=== PATIENT | male | born 1960 | race Caucasian/White ===

== ENCOUNTER → 2016-08-14 | Outpatient (CLI) | payer OTHER ==
[~2016-08-14] MED LIST: ASPI81TA28 PO; LEVO175T25 PO
[2016-08-14 10:59] LABS: BASO % 1.7 %; BASO ABS # 0.14 K/uL (0-0.2); COMPLETE YES; EOS % 1.7 %; HEMATOCRIT 43.5 % (42-52); IG% 0.1 %; LYMPH ABS # 1.86 K/uL (1.2-3.4); MEAN CELL VOLUME 92.8 fL (80-100); MEAN CORPUSCULAR HEMOGLOBIN 32.2 pg (25-34); MEAN CORPUSCULAR HGB CONC 34.7 g/dl (32-36); MEAN PLATELET VOLUME 10.1 fL (7.4-10.4); NEUT % 59.5 %; PLATELET COUNT 438 K/uL (130-400); RED BLOOD COUNT 4.69 M/uL (4.7-6.1)
[2016-08-14 11:27] LABS: ALKALINE PHOSPHATASE 67 U/L (45-117); ALT/SGPT 28 U/L (12-78); AST/SGOT 21 U/L (15-37); BLOOD UREA NITROGEN 14 mg/dl (7-18); BUN/CREATININE RATIO 11.5 (10-20); CALCIUM 8.7 mg/dl (8.5-10.1); CARBON DIOXIDE 27 mmol/L (21-32); CHLORIDE 102 mmol/L (98-107); CHOLESTEROL 190 mg/dl (0-200); CHOLESTEROL/HDL RATIO 2.3; GLUCOSE 97 mg/dl (70-99); HDL CHOLESTEROL 81 mg/dl; LDL CHOLESTEROL CALCULATED 95 mg/dl; POTASSIUM 3.9 mmol/L (3.5-5.1); SODIUM 139 mmol/L (136-145); TRIGLYCERIDES 69 mg/dl (0-150); VERY LOW DENSITY LIPOPROT CALC 14 mg/dl
== END | disposition home or self-care (01) ==
LOC: C.LABBC 09:07
PROVIDERS: ATTEND Family Medicine
DX: I10 Essential (primary) hypertension (principal); E03.9 Hypothyroidism, unspecified; C81.90 Hodgkin lymphoma, unspecified, unspecified site; Z11.59 Encounter for screening for other viral diseases; Z13.220 Encounter for screening for lipoid disorders

== ENCOUNTER → 2017-09-07 | Outpatient (CLI) | payer OTHER ==
--- NOTE | 2017-09-07 10:01 | DIAGNOSTIC IMAGING REPORT ---
CHEST 2 VIEWS ROUTINE CLINICAL HISTORY: Hodgkin's lymphoma. COMPARISON STUDY: Chest radiograph December 27, 2012 and January 29, 2015. FINDINGS: Lung volumes are normal. No pneumothorax or pleural effusion is noted. There is no consolidation. Several calcified mediastinal lymph nodes are noted. A 1.4 cm right paratracheal density is likely artifactual. Upper abdominal surgical clips are noted. IMPRESSION: 1. 1.4 cm right paratracheal density. This is likely artifactual. However, a follow-up chest CT is recommended to exclude a pulmonary nodule. 2. No acute cardiopulmonary findings. Electronically signed by: Radhames Berger M.D. 09/07/2017 9:59 AM Dictated Date/Time: 09/07/2017 9:56 AM
[2017-09-07 13:52] LABS: BASO ABS # 0.14 K/uL (0-0.2); EOS % 0.6 %; EOS ABS # 0.04 K/uL (0-0.5); HEMATOCRIT 45.3 % (42-52); HEMOGLOBIN 15.7 g/dL (14.0-18.0); IG# 0.01 K/uL (0.00-0.02); LYMPH % 35.6 %; LYMPH ABS # 2.45 K/uL (1.2-3.4); MEAN CELL VOLUME 94.6 fL (80-100); MEAN CORPUSCULAR HEMOGLOBIN 32.8 pg (25-34); MEAN CORPUSCULAR HGB CONC 34.7 g/dl (32-36); MEAN PLATELET VOLUME 10.2 fL (7.4-10.4); MONO % 13.6 %; MONO ABS # 0.94 K/uL (0.11-0.59); NEUT % 48.1 %; NEUT ABS # 3.31 K/uL (1.4-6.5); PLATELET COUNT 399 K/uL (130-400); RED CELL DISTRIBUTION WIDTH CV 14.9 % (11.5-14.5); RED CELL DISTRIBUTION WIDTH SD 52.2 fL (36.4-46.3); WHITE BLOOD COUNT 6.89 K/uL (4.8-10.8)
[2017-09-07 14:07] LABS: ALT/SGPT 35 U/L (12-78); BLOOD UREA NITROGEN 16 mg/dl (7-18); CALCIUM 8.8 mg/dl (8.5-10.1); CARBON DIOXIDE 28 mmol/L (21-32); CHOLESTEROL 191 mg/dl (0-200); GLUCOSE 96 mg/dl (70-99); SODIUM 134 mmol/L (136-145)
[2017-09-07 14:17] LABS: ALKALINE PHOSPHATASE 72 U/L (45-117); AST/SGOT 23 U/L (15-37); LDL CHOLESTEROL CALCULATED 91 mg/dl; TOTAL PROTEIN 8.1 gm/dl (6.4-8.2)
== END | disposition home or self-care (01) ==
LOC: C.RADBC 09:23
PROVIDERS: ATTEND Nurse Practitioner Adult Health
DX: Z12.5 Encounter for screening for malignant neoplasm of prostate (principal); Z13.220 Encounter for screening for lipoid disorders; C81.90 Hodgkin lymphoma, unspecified, unspecified site; E03.9 Hypothyroidism, unspecified; I10 Essential (primary) hypertension

== ENCOUNTER → 2017-09-14 | Outpatient (CLI) | payer OTHER ==
[~2017-09-14] MED LIST changes: +OPTIRAY 320 IV PRN
--- NOTE | 2017-09-14 12:24 | DIAGNOSTIC IMAGING REPORT ---
CT OF THE CHEST WITH IV CONTRAST CLINICAL HISTORY: Hodgkin's lymphoma. Abnormal chest x-ray with 14 mm paratracheal density. COMPARISON STUDY: Chest x-ray dated 09/07/2017 TECHNIQUE: Following the IV administration of 93 mL of Optiray-320, CT of the thorax was performed from the thoracic inlet to the lung bases. Images are reviewed in the axial, sagittal, and coronal planes. IV contrast was administered without complication. A dose lowering technique was utilized adhering to the principles of ALARA. CT DOSE: 255.43 mGycm FINDINGS: Thyroid: The thyroid gland appears diminutive. Thoracic aorta: The thoracic aorta is normal in course and caliber, noting standard 3-vessel arch anatomy. No aneurysm or dissection is seen. Pulmonary vasculature: The pulmonary trunk is normal in caliber. There are no central filling defects identified to suggest pulmonary embolus. Note that this examination was not protocoled for the evaluation of pulmonary emboli. HEART: The heart is normal in size and configuration, without pericardial effusion. There are coronary artery calcifications. Lungs and pleural spaces: There are no suspicious pulmonary masses. The recently queried 14 mm right paratracheal nodule was not confirmed. This likely represented a summation artifact. There are no pleural effusions. There is no focal pulmonary consolidation. There is very subtle left upper lobe paramediastinal fibrotic change. There is a 13 x 3 mm tubular density within the periphery of the right lower lobe. Although nonspecific this is unlikely to be neoplastic. This could represent a vascular distended mucous filled peripheral bronchus. Mediastinum: There is no pathologic adenopathy. There are calcified pretracheal lymph nodes. Blank: There is no evidence of pathologic hilar adenopathy Axilla: There is no evidence of pathologic axillary lymphadenopathy Upper abdomen: Surgical clips are visualized adjacent to the pancreatic head. Skeletal structures: There are no lytic or blastic osseous lesions. IMPRESSION: 1. CT scanning fails to confirm the queried right paratracheal pulmonary nodule 2. No evidence of pathologic adenopathy 3. Very subtle upper lobe paramediastinal fibrotic change 4. 13 x 3 mm tubular density within the periphery of the right lower lobe. This could represents a distended mucous filled bronchus Electronically signed by: Glen Fonseca M.D. 09/14/2017 12:22 PM Dictated Date/Time: 09/14/2017 12:12 PM
== END | disposition home or self-care (01) ==
LOC: C.CTS 11:52
PROVIDERS: ATTEND Nurse Practitioner Adult Health
DX: J98.4 Other disorders of lung (principal)

== ENCOUNTER → 2017-10-18 | Outpatient (CLI) | payer OTHER ==
[~2017-10-18] MED LIST changes: -OPTIRAY 320 IV PRN
== END | disposition home or self-care (01) ==
LOC: C.LAB1850 12:24
PROVIDERS: ATTEND Nurse Practitioner Adult Health
DX: E03.9 Hypothyroidism, unspecified (principal)

== ENCOUNTER → 2018-01-22 | Outpatient (CLI) | payer OTHER ==
[~2018-01-22] MED LIST changes: +OPTIRAY 320 IV PRN
--- NOTE | 2018-01-22 09:54 | DIAGNOSTIC IMAGING REPORT ---
CT OF THE CHEST WITH IV CONTRAST CLINICAL HISTORY: R93.[address] of the chest HODGKIN'S LYMPHOMA. HISTORY OF PARATRACHEAL NODULE. LEFT LOWER LOBE MUCOUS PLUG. COMPARISON STUDY: 09/14/2017 TECHNIQUE: Following the IV administration of 119 mL of Optiray-320, CT of the thorax was performed from the thoracic inlet to the lung bases. Images are reviewed in the axial, sagittal, and coronal planes. IV contrast was administered without complication. A dose lowering technique was utilized adhering to the principles of ALARA. CT DOSE: 374.45 mGy.cm FINDINGS: Thyroid: Imaged portions of the thyroid gland are normal in appearance. Thoracic aorta: The thoracic aorta is normal in course and caliber, noting standard 3-vessel arch anatomy. No aneurysm or dissection is seen. Pulmonary vasculature: The pulmonary trunk is normal in caliber. There are no central filling defects identified to suggest pulmonary embolus. Note that this examination was not protocoled for the evaluation of pulmonary emboli. HEART: The heart is normal in size and configuration, without pericardial effusion. Lungs and pleural spaces: There are no pleural effusions. There is no focal pulmonary consolidation. There are mild paramediastinal fibrotic changes. The previously identified branching tubular structure within the right lower lobe remains unchanged. Mediastinum: There is no mediastinal lymphadenopathy. Blank: Clear. Axilla: Clear. Upper abdomen: There is a possible 3.4 cm partially visualized central mesenteric mass. A CT scan of the abdomen and pelvis is recommended in follow-up. Skeletal structures: There are no lytic or blastic osseous lesions. IMPRESSION: 1. Possible 3.4 cm partially visualized central mesenteric mass. A CT scan of the abdomen and pelvis is recommended in follow-up 2. No evidence of pathologic adenopathy within the chest 3. Stable branching tubular structure within the right lower lobe. Although of uncertain etiology, this again could represent a distended and mucous filled bronchus Electronically signed by: Glen Fonseca M.D. 01/22/2018 9:53 AM Dictated Date/Time: 01/22/2018 9:29 AM
== END | disposition home or self-care (01) ==
LOC: C.CTS 08:49
PROVIDERS: ATTEND Nurse Practitioner Adult Health
DX: R93.8 Abnormal findings on diagnostic imaging of other specified body structures (principal)

== ENCOUNTER → 2018-02-01 | Outpatient (CLI) | payer OTHER ==
--- NOTE | 2018-02-01 12:38 | DIAGNOSTIC IMAGING REPORT ---
ABDOMEN AND PELVIS CT WITH IV AND ORAL CONTRAST CT DOSE: 478.62 mGy.cm HISTORY: Abnormal CT. R19.09 Central abdominal mass TECHNIQUE: Multiaxial CT images of the abdomen and pelvis were performed following the use of intravenous and oral contrast. A dose lowering technique was utilized adhering to the principles of ALARA. COMPARISON STUDY: Chest CT 01/22/2018. FINDINGS: Stable small branching to the structure within the right lower lobe. This favors an impacted bronchus. The left lung base is clear. No pneumoperitoneum. No pneumatosis. No suspicious lytic or blastic osseous lesions. No hepatic masses. A few punctate calcified granulomas within the left hepatic lobe. The gallbladder, pancreas, and adrenal glands are unremarkable. There is a punctate stone within the right kidney. No hydronephrosis. There is a 7 mm hypodense lesion within the interpolar region of the left kidney. This is too small to characterize. Multiple retroperitoneal surgical clips are noted. Normal caliber abdominal aorta. No retroperitoneal lymphadenopathy. No pelvic lymphadenopathy. Normal bladder. Colonic diverticulosis. No bowel wall thickening or obstruction. Normal appendix. Moderate stool within the colon. The spleen is surgically absent. Within the central mesentery there is a 3.5 cm round lesion. This demonstrates a thickened wall and central hypodensity. There are few punctate mural calcifications within this lesion. This does not abut an adjacent bowel loop. IMPRESSION: 1. A 3.5 cm round lesion within the central mesentery which demonstrates a thickened wall and central hypodensity. There may be a few punctate mural calcifications. This is indeterminate and could represent a necrotic lymph node/mass, pseudoaneurysm/aneurysm, or possibly a mesenteric duplication cyst. At a minimum, [address] follow-up is recommended to ensure stability. However, given the patient's history of malignancy, surgical resection for pathologic diagnosis should be considered. 2. Prior splenectomy. The central mesenteric lesion does not appear to represent splenic tissue given the central hypodensity. 3. Additional findings as described above. Electronically signed by: Bryan Aleman M.D. 02/01/2018 12:37 PM Dictated Date/Time: 02/01/2018 12:19 PM
== END | disposition home or self-care (01) ==
LOC: C.CTS 11:38
PROVIDERS: ATTEND Internal Medicine
DX: R19.09 Other intra-abdominal and pelvic swelling, mass and lump (principal); Z90.49 Acquired absence of other specified parts of digestive tract

== ENCOUNTER 2023-05-05 14:28 | Inpatient (IN) ==
--- NOTE | 2023-05-05 15:12 | Emergency Department Note ---
Impression & Plan Atrial flutter with rapid ventricular response, Elevated troponin, Elevated brain natriuretic peptide (BNP) level, Heart palpitations, Shortness of breath ED Provider Note HISTORY OF PRESENT ILLNESS: Patient is a 62-year-old male presenting with palpitations and shortness of breath. Patient reports that he was just released from [facility] yesterday after being admitted for 9 days for open heart surgery. He had his aortic valve replaced, his mitral valve replaced and a one-vessel coronary bypass. He states he been doing well and was discharged last night. He states that at 1:00 this afternoon he started feeling like his heart was racing and got short of breath and lightheaded. He denies any DVT or PE history. He is on Coumadin and took his dose last night. He was instructed that if any of the symptoms occur he should present to the emergency department. He denies any chest pain. Patient reports he does get short of breath and lightheaded with any sort of exertion since his palpitations started. He feels like his heart is racing ROS: as above PHYSICAL EXAM: Constitutional: Patient appears in no acute distress. HENT: Head: Normocephalic and atraumatic. Eyes: EOMI, PERRL Mouth/Throat: Mucous membranes moist. Neck: Trachea midline. Neck supple. Cardiovascular: Tachycardic with regular rhythm. No murmurs, rubs or gallops. Intact distal pulses. Pulmonary/Chest: No respiratory distress. Breath sounds clear and equal bilaterally. No wheezes or rales. Well-healing sternotomy scar. No obvious dehiscence. Abdominal: Abdomen soft, no tenderness, rebound or guarding. Musculoskeletal: No edema, tenderness or deformity noted. Skin: Warm and dry. No rash, erythema, pallor or cyanosis Psychiatric: Appropriate mood and affect for situation. Neurological: Alert and keenly responsive. CN II-XII grossly intact, moving all extremities equally and fully. MDM: - Vitals signs showed tachycardia - History obtained via patient. Patient presents with palpitations and shortness of breath. Patient reports he was released from [facility] last night after 9-day stay after having aortic and mitral valve replacement and a pacemaker placed. He reports that since 1 PM today he has been feeling like his heart is racing and he is lightheaded and short of breath. Denies any DVT or PE history. He is on Coumadin. - Chronic conditions affecting care: CAD (s/p CABG); aortic and mitral stenosis (s/p valve replacements 04/25/2023); HTN; HLD - Differential diagnoses include, but are not limited to: Electrolyte abnormality; ACS; CHF exacerbation; PE - Order placed for continuous cardiac monitoring. At this time, monitor showed rate of 147 bpm with regular rhythm, per my interpretation. - External medical records reviewed. Discharge documentation from [facility] was reviewed. Patient had "23 mm AVR, 29 mm MVR, CABG x1 SVG to OM2 04/25/2023 and ICD/Pacemaker insertion on 05/03/2023." - EKG reviewed by myself showed wide complex tachycardia. Rate 147 bpm. QTc 330. - Laboratory workup interpreted by myself showed slight leukocytosis (WBC 11.33); thrombocytosis (plt 759); supratherapeutic INR (3.8); stable electrolytes; elevated troponin (125.6); elevated BNP (8.5); normal lipase - CXR negative for pneumonia or pleural effusion, per my interpretation. - Patient's pacemaker was interrogated and [employer] called with reports [id number]. They report the patient is a 2-1 atrial flutter that is conducting to the ventricles. Reports that it appears that the patient has been in this flutter for at least 6 hours, since midnight. - Discussed case with [facility] cardiothoracic surgeon, Dr. Sotelo, and coin machine collector supervisor, Dr. Wilson. From cardiothoracic standpoint they do not think this is a complication from his surgical interventions. Cardiology recommended the patient be given a 150 mg IV amiodarone bolus and started on amiodarone drip. Discussed that patient's medication list does not show any beta-blockers postsurgery. Cardiology recommended patient given 25 mg of p.o. metoprolol every 6 hours for further rate control. Recommended that if the patient still is not rate controlled after metoprolol and IV amiodarone, he can be given oral amiodarone 20 mg 3 times daily. They do not feel the patient requires transfer for his rate control. They state that if the patient is still poorly rate controlled and would need an ablation, they can be called to help schedule outpatient follow-up. - Amiodarone bolus and drip ordered. PO metoprolol ordered. - Discussion was had with certified social workers in health care about patient's case and need for admission - Hospitalist consulted for admission - Patient admitted to Health System service for further evaluation and management. I provided 46 minutes of critical care time to this patient's care outside of billable procedures. ASSESSMENT AND PLAN: Diagnosis: Atrial flutter with RVR; elevated troponin; elevated BNP; palpitations; shortness of breath Plan: admit Past Med/Surg History Medical History (Updated 05/05/23 @ 17:49 by Ilia Paredes MD) Borderline glaucoma GERD (gastroesophageal reflux disease) Hodgkins lymphoma dx'd in his 20s. hx radiation. Aortic valve stenosis HLD (hyperlipidemia) HTN (hypertension) Cardiac murmur Moderate mitral regurgitation Vitamin D deficiency Hypothyroidism Pulmonary hypertension Surgical History History of wisdom tooth extraction History of colonoscopy Hx of splenectomy Family History Father Cardiac disorder Myocardial infarction Mother Hypertension Sister Breast cancer Denies family history of Ovarian cancer Prostate cancer Colorectal cancer Social History Smoking Status: Never smoker Second Hand Exposure: Yes (as a child); Do You Dip or Chew Tobacco: No; Hx Alcohol Use: Yes Alcohol type: wine Alcohol Intake Frequency: 2-3 x/Week Hx Substance Use: No Preferred Language: Lao Communication Ability: Effective Visual Impairment: Limited Hearing Ability: Normal National Account Executive Required: No Beliefs That Will Affect Care: None marital status: Current Living Situation: Family Current Living Situation Comment: and live with kids current occupational status: employed current occupation: [employer] How many Children do You have: 2 Feels Safe at Home: Yes Childhood Exposure to Second-Hand Smoke: Yes caffeine: Yes Dental Care, Regularly: Yes Physical Activity Frequency: Daily Seatbelt Use: always Sunscreen Use: Yes Assistive Devices: Glasses Allergies Allergies Allergy/AdvReac Type Severity Reaction Status Date / Time No Known Allergies Allergy Mild Verified 05/05/23 17:07 Home Meds Home Medications Medication Instructions Recorded Confirmed aspirin 81 mg chewable tablet 81 mg PO QAM 08/26/19 05/05/23 multivitamin (Multiple Vitamins 1 tab PO QAM 10/14/20 05/05/23 tablet) omeprazole magnesium 20 mg 20 mg PO Q OTHER DAY 10/14/20 05/05/23 tablet,delayed release (Prilosec OTC) levothyroxine 112 mcg tablet 112 mcg PO QAM 02/07/23 05/05/23 acetaminophen 500 mg tablet 1,000 mg PO Q8H 05/05/23 05/05/23 (Tylenol Extra Strength) furosemide 40 mg tablet 40 mg PO QAM 05/05/23 05/05/23 latanoprost 0.005 % eye drops 1 drp OPB QPM 05/05/23 05/05/23 oxycodone 5 mg tablet 5 mg PO Q4H PRN Pain (Scale Score 05/05/23 05/05/23 7-10) potassium chloride 20 mEq 20 meq PO BID 05/05/23 05/05/23 tablet,extended release rosuvastatin 5 mg tablet 5 mg PO DAILY 05/05/23 05/05/23 sennosides 8.6 mg-docusate sodium 1 tab-cap PO BID PRN Constipation 05/05/23 05/05/23 50 mg tablet (Senna-S) warfarin 3 mg tablet 3 mg PO QPM 05/05/23 05/05/23 Results & Data (ED) Vital Signs Vital Signs - 24 hr 05/05/23 14:33 05/05/23 14:42 05/05/23 14:45 Temperature 36.9 C Temperature Source Temporal Artery Scan Pulse Rate 151 H 147 H 146 H Pulse Rate [Apical] Pulse Rate from SpO2 Sensor Respiratory Rate 24 18 26 H Respiratory Effort / Characteristics Spontaneous Respiratory Depth Normal Respiratory Pattern Regular Blood Pressure 119/79 Blood Pressure [Left Arm] Blood Pressure Mean 92 Blood Pressure Mean [Left Arm] Blood Pressure Position Sitting Blood Pressure Position [Left Arm] Pulse Oximetry 98 Oxygen Delivery Method Room Air Sepsis Recent Fever Within 48 Hours No Sepsis New/Unexplained Change in Mental Status No Sepsis Action Taken by Nursing No Action Required 05/05/23 14:53 05/05/23 14:53 05/05/23 14:55 Temperature Temperature Source Pulse Rate 147 H 146 H Pulse Rate [Apical] Pulse Rate from SpO2 Sensor Respiratory Rate 29 H 20 Respiratory Effort / Characteristics Respiratory Depth Respiratory Pattern Blood Pressure 110/87 Blood Pressure [Left Arm] Blood Pressure Mean 102 Blood Pressure Mean [Left Arm] Blood Pressure Position Blood Pressure Position [Left Arm] Pulse Oximetry 97 Oxygen Delivery Method Room Air Sepsis Recent Fever Within 48 Hours Sepsis New/Unexplained Change in Mental Status Sepsis Action Taken by Nursing 05/05/23 14:56 05/05/23 14:56 05/05/23 14:56 Temperature Temperature Source Pulse Rate 146 H Pulse Rate [Apical] 146 H Pulse Rate from SpO2 Sensor 144 H Respiratory Rate 20 16 Respiratory Effort / Characteristics Respiratory Depth Respiratory Pattern Blood Pressure 106/85 Blood Pressure [Left Arm] 106/85 Blood Pressure Mean 91 Blood Pressure Mean [Left Arm] 92 Blood Pressure Position Blood Pressure Position [Left Arm] Semi-fowlers Pulse Oximetry 98 93 Oxygen Delivery Method Room Air Sepsis Recent Fever Within 48 Hours Sepsis New/Unexplained Change in Mental Status Sepsis Action Taken by Nursing 05/05/23 14:58 05/05/23 15:00 05/05/23 15:13 Temperature Temperature Source Pulse Rate 146 H 147 H Pulse Rate [Apical] Pulse Rate from SpO2 Sensor 153 H Respiratory Rate 15 Respiratory Effort / Characteristics Respiratory Depth Respiratory Pattern Blood Pressure Blood Pressure [Left Arm] Blood Pressure Mean Blood Pressure Mean [Left Arm] Blood Pressure Position Blood Pressure Position [Left Arm] Pulse Oximetry 96 96 Oxygen Delivery Method Room Air Sepsis Recent Fever Within 48 Hours Sepsis New/Unexplained Change in Mental Status Sepsis Action Taken by Nursing 05/05/23 15:15 05/05/23 15:30 05/05/23 15:45 Temperature Temperature Source Pulse Rate 147 H 147 H 148 H Pulse Rate [Apical] Pulse Rate from SpO2 Sensor 147 H 148 H 148 H Respiratory Rate 15 22 22 Respiratory Effort / Characteristics Respiratory Depth Respiratory Pattern Blood Pressure Blood Pressure [Left Arm] Blood Pressure Mean Blood Pressure Mean [Left Arm] Blood Pressure Position Blood Pressure Position [Left Arm] Pulse Oximetry 97 98 99 Oxygen Delivery Method Sepsis Recent Fever Within 48 Hours Sepsis New/Unexplained Change in Mental Status Sepsis Action Taken by Nursing 05/05/23 15:54 05/05/23 15:54 05/05/23 15:54 Temperature Temperature Source Pulse Rate 148 H Pulse Rate [Apical] 147 H Pulse Rate from SpO2 Sensor 151 H Respiratory Rate 20 16 Respiratory Effort / Characteristics Respiratory Depth Respiratory Pattern Blood Pressure 125/88 Blood Pressure [Left Arm] 125/88 Blood Pressure Mean 105 Blood Pressure Mean [Left Arm] 100 Blood Pressure Position Blood Pressure Position [Left Arm] Semi-fowlers Pulse Oximetry 100 97 Oxygen Delivery Method Room Air Sepsis Recent Fever Within 48 Hours Sepsis New/Unexplained Change in Mental Status Sepsis Action Taken by Nursing 05/05/23 16:50 05/05/23 16:50 05/05/23 17:00 Temperature Temperature Source Pulse Rate 148 H 148 H Pulse Rate [Apical] Pulse Rate from SpO2 Sensor 149 H Respiratory Rate 25 H 17 Respiratory Effort / Characteristics Respiratory Depth Respiratory Pattern Blood Pressure 113/71 Blood Pressure [Left Arm] Blood Pressure Mean 95 Blood Pressure Mean [Left Arm] Blood Pressure Position Blood Pressure Position [Left Arm] Pulse Oximetry 98 Oxygen Delivery Method Sepsis Recent Fever Within 48 Hours Sepsis New/Unexplained Change in Mental Status Sepsis Action Taken by Nursing 05/05/23 17:00 05/05/23 17:15 05/05/23 17:26 Temperature Temperature Source Pulse Rate 149 H Pulse Rate [Apical] 149 H Pulse Rate from SpO2 Sensor Respiratory Rate 20 24 Respiratory Effort / Characteristics Respiratory Depth Respiratory Pattern Blood Pressure 112/87 Blood Pressure [Left Arm] 127/89 Blood Pressure Mean 94 Blood Pressure Mean [Left Arm] 101 Blood Pressure Position Blood Pressure Position [Left Arm] Semi-fowlers Pulse Oximetry 100 Oxygen Delivery Method Room Air Sepsis Recent Fever Within 48 Hours Sepsis New/Unexplained Change in Mental Status Sepsis Action Taken by Nursing 05/05/23 17:27 05/05/23 17:27 05/05/23 17:30 Temperature Temperature Source Pulse Rate 148 H 148 H Pulse Rate [Apical] Pulse Rate from SpO2 Sensor 148 H Respiratory Rate 23 28 H Respiratory Effort / Characteristics Respiratory Depth Respiratory Pattern Blood Pressure 127/89 Blood Pressure [Left Arm] Blood Pressure Mean 98 Blood Pressure Mean [Left Arm] Blood Pressure Position Blood Pressure Position [Left Arm] Pulse Oximetry 98 Oxygen Delivery Method Sepsis Recent Fever Within 48 Hours Sepsis New/Unexplained Change in Mental Status Sepsis Action Taken by Nursing Laboratory Data 05/05/23 14:48 05/05/23 14:48 Lab Results 05/05/23 05/05/23 Range/Units 14:48 16:51 WBC 11.33 H (4.8-10.8) K/ul RBC 3.74 L (4.70-6.10) M/uL Hgb 11.7 L (14.0-18.0) g/dl Hct 34.5 L (42.0-52.0) % MCV 92.2 (80.0-100.0) fL MCH 31.3 (25.0-34.0) pg MCHC 33.9 (32.0-36.0) g/dL RDW Std Deviation 48.7 H (36.4-46.3) fL RDW Coeff of Dara 14.3 (11.5-14.5) % Plt Count 759 H (130-400) K/uL MPV 9.6 (9.4-12.4) fL Immature Gran % (Auto) 0.5 % Neut % (Auto) 74.3 % Lymph % (Auto) 14.7 % [place] % (Auto) 9.2 % Eos % (Auto) 0.4 % Baso % (Auto) 0.9 % Neut # (Auto) 8.43 H (1.40-6.50) K/uL Lymph # (Auto) 1.66 (1.20-3.40) K/uL [place] # (Auto) 1.04 H (0.11-0.59) K/uL Eos # (Auto) 0.04 (0.00-0.50) K/uL Baso # (Auto) 0.10 (0.00-0.20) K/uL Immature Gran # (Auto) 0.06 (0.01-0.20) K/uL Absolute Nucleated RBC 0.02 (0.00-0.12) K/uL Nucleated RBC % (auto) 0.2 % PT 37.9 H (9.0-12.0) Seconds INR 3.8 H (0.9-1.1) Sodium 136 (136-145) mmol/L Potassium 3.7 (3.5-5.1) mmol/L Chloride 100 (98-107) mmol/L Carbon Dioxide 22 (21-32) mmol/L Anion Gap 14 H (3-11) BUN 14 (6-23) mg/dl Creatinine 0.98 (0.6-1.4) mg/dl Est Cr Clr Drug Dosing 90.6 ml/min Est GFR ( Amer) 96.7 ml/min Est GFR (Non-Af Amer) 83.5 ml/min BUN/Creatinine Ratio 14.3 (10-20) Glucose 104 H (70-99(Fasting)) mg/dl Calcium 9.5 (8.6-10.3) mg/dl Magnesium 1.9 (1.7-2.4) mg/dl Total Bilirubin 0.5 (0.2-1.0) mg/dl AST 36 (13-39) U/L ALT 38 (7-52) U/L Alkaline Phosphatase 210 H (34-104) U/L Troponin I High Sens 125.6 H* 118.7 H* (0-20) pg/ml B-Natriuretic Peptide 403 H (0-100) pg/ml Total Protein 8.5 H (6.0-8.3) gm/dl Albumin 4.1 (3.4-5.0) gm/dl Globulin 4.4 H (2.5-4.0) gm/dl Albumin/Globulin Ratio 0.9 (0.9-2) Lipase 71 (11-82) U/L Administered Medications Amiodarone HCl/Dextrose (Nexterone / D5w) 360 mg in 200 mls @ 33.333 mls/hr IV ONE ONE Stop: 05/05/23 23:25 Last Admin: 05/05/23 17:46 Dose: 1 mg/min, 33.3 mls/hr Documented By: Co-signed By: [facility] Metoprolol Tartrate (Metoprolol Tartrate 25 Mg Tab) 25 mg PO Q6H [place] Stop: 06/04/23 17:29 Last Admin: 05/05/23 17:27 Dose: 25 mg Documented By: Discontinued Medications Amiodarone HCl/Dextrose (Nexterone / D5w) 150 mg in 100 mls @ 600 mls/hr IV NOW STA Stop: 05/05/23 17:25 Last Admin: 05/05/23 17:30 Dose: 600 mls/hr Documented By: Co-signed By: [facility] Imaging Data Radiologist's Impression: Chest X-Ray 05/05/23 14:43 XR chest 1V portable CLINICAL HISTORY: Chest pain, nonspecific COMPARISON STUDY: Chest CT December 28, 2022. FINDINGS: Left subclavian pacer, median sternotomy wires and prosthetic cardiac valve are noted. Cardiomediastinal silhouette is unremarkable. There is no pneumothorax or pleural effusion. There is no consolidation to suggest pneumonia. Calcified mediastinal lymph nodes are incidentally noted. Biapical densities favor scarring. IMPRESSION: No acute cardiopulmonary findings. ACT 112: Negative or not required by law. Electronically signed by: Radhames Berger M.D. 05/05/2023 3:45 PM Discharge Plan Visit Data Chief Complaint: Cardiac Assessment Stated Complaint: DIFFICULTY BREATHING,TACHYCARDIA-S/P HEART SURGERY ED Provider: Marisela Hopkins Discharge Problem: Atrial flutter with rapid ventricular response, Elevated troponin, Elevated brain natriuretic peptide (BNP) level, Heart palpitations, Shortness of breath Forms Stand Alone Forms: [facility] Prescriptions Prescriptions: No Action aspirin 81 mg tablet,chewable 81 mg PO QAM Prilosec OTC 20 mg tablet,delayed release (DR/EC) 20 mg PO Q OTHER DAY multivitamin [Multiple Vitamins] Tablet 1 tab PO QAM levothyroxine 112 mcg tablet 112 mcg PO QAM furosemide 40 mg tablet 40 mg PO QAM Rx Instructions: STARTED 05/04/23 FOR 7 DAYS latanoprost 0.005 % drops 1 drp OPB QPM sennosides-docusate sodium [Senna-S] 8.6-50 mg Tablet 1 tab-cap PO BID PRN (Reason: Constipation) acetaminophen [Tylenol Extra Strength] 500 mg Tablet 1,000 mg PO Q8H warfarin 3 mg tablet 3 mg PO QPM oxycodone 5 mg tablet 5 mg PO Q4H PRN (Reason: Pain (Scale Score 7-10)) potassium chloride 20 mEq tablet extended release 20 meq PO BID Rx Instructions: STARTED 05/04/23 FOR 7 DAYS rosuvastatin 5 mg tablet 5 mg PO DAILY Referrals Referrals: PCP,NO [Primary Care Provider] -
[2023-05-05 15:14] LABS: Basophils % (auto) 0.9 %; Eosinophils # (auto) 0.04 K/uL (0.00-0.50); Eosinophils % (auto) 0.4 %; Hematocrit (blood only) 34.5 % (42.0-52.0); Hemoglobin 11.7 g/dl (14.0-18.0); Immature Granulocytes # (auto) 0.06 K/uL (0.01-0.20); Immature Granulocytes % (auto) 0.5 %; Lymphocytes # (auto) 1.66 K/uL (1.20-3.40); Lymphocytes % (auto) 14.7 %; Mean Corpuscular Hemoglobin 31.3 pg (25.0-34.0); Mean Corpuscular Hgb Conc 33.9 g/dL (32.0-36.0); Mean Corpuscular Volume 92.2 fL (80.0-100.0); Mean Platelet Volume 9.6 fL (9.4-12.4); Monocytes # (auto) 1.04 K/uL (0.11-0.59); Monocytes % (auto) 9.2 %; Neutrophils # (auto) 8.43 K/uL (1.40-6.50); Neutrophils % (auto) 74.3 %; Nucleated RBC # (auto) 0.02 K/uL (0.00-0.12); Nucleated RBC % (auto) 0.2 %; Platelet Count 759 K/uL (130-400); RDW Coefficient of Variation 14.3 % (11.5-14.5); RDW Standard Deviation 48.7 fL (36.4-46.3); Red Blood Count 3.74 M/uL (4.70-6.10); White Blood Count 11.33 K/ul (4.8-10.8)
[2023-05-05 15:29] LABS: Albumin Globulin Ratio 0.9 (0.9-2); Albumin Level 4.1 gm/dl (3.4-5.0); BUN Creatinine Ratio 14.3 (10-20); Bilirubin,Total 0.5 mg/dl (0.2-1.0); Calcium 9.5 mg/dl (8.6-10.3); Creatinine Clr Calc Pharmacy 90.6 ml/min; Est GFR (African American) 96.7 ml/min; Est GFR (Non-African American) 83.5 ml/min; Globulin 4.4 gm/dl (2.5-4.0); INR 3.8 (0.9-1.1); Magnesium 1.9 mg/dl (1.7-2.4); Potassium 3.7 mmol/L (3.5-5.1); Prothrombin Time 37.9 Seconds (9.0-12.0); Total Protein 8.5 gm/dl (6.0-8.3)
[2023-05-05 15:37] LABS: Troponin I High Sensitivity 125.6 pg/ml (0-20)
--- NOTE | 2023-05-05 15:47 | XRay Report ---
XR chest 1V portable CLINICAL HISTORY: Chest pain, nonspecific COMPARISON STUDY: Chest CT December 28, 2022. FINDINGS: Left subclavian pacer, median sternotomy wires and prosthetic cardiac valve are noted. Card iomediastinal silhouette is unremarkable. There is no pneumothorax or pleural effusion. There is no c onsolidation to suggest pneumonia. Calcified mediastinal lymph nodes are incidentally noted. Biapical densities favor scarring. IMPRESSION: No acute cardiopulmonary findings. ACT 112: Negative or not required by law. Electronically signed by: Radhames Berger M.D. 05/05/2023 3:45 PM
[2023-05-05] MEDS ORDERED: 0.2 MICRON FILTER SET 1 EACH IV STA (17:16)
[2023-05-05] MEDS ORDERED: STAT IV Infusion **Titration per Protocol STA (17:16)
[2023-05-05] MEDS ORDERED: AMIODARONE IV BOLUS & DRIP IV STA (17:16)
[2023-05-05] MEDS ORDERED: AMIODARONE / D5W 150 MG/100 ML BAG IV STA (17:16)
[2023-05-05] MEDS ORDERED: AMIODARONE / D5W 360 MG/200 ML BAG IV ONE (17:26)
[2023-05-05] MEDS: METOPROLOL TARTRATE 25 MG TAB PO SCH ×2 (17:27→23:47)
--- NOTE | 2023-05-05 17:51 | History & Physical Report ---
Date of Service May 05, 2023 Assessment & Plan (1) Atrial flutter with rapid ventricular response: Plan: Atrial flutter, 2-1 block. [place] [facility] [place] cardiothoracic surgery and cardiology [place] [facility] Patient is not recommended for transfer at this time. Pharmacologic rate control is recommended. Patient started on amiodarone drip and is being loaded with metoprolol oral every 6 hours. Goal of transitioning to oral metoprolol, and if inadequate alone may need adjunct oral amiodarone. If this is not effective then they will schedule the patient for an outpatient ablation, although suspect that he will do well with metoprolol +/- amiodarone. He is anticoagulated with warfarin, INR is slightly supratherapeutic at 3.8. 1 dose is held on admission, INR check tomorrow and to be resumed. Optimize potassium 4.0, magnesium 2.0 Admit to telemetry overnight Cardiology consulted Echo pending Troponin trended Lasix continued, aspirin continued, rosuvastatin Chest x-ray does not show any acute fluid overload. BNP is slightly elevated, will continue baseline Lasix dosing. No RANDOLPH. Patient is normotensive and no emergent cardioversion is indicated at time of admission (2) GERD (gastroesophageal reflux disease): Plan: GERD Continue PPI every other day, may convert omeprazole to Protonix while inpatient (3) HLD (hyperlipidemia): Plan: Statin continue (4) HTN (hypertension): Plan: Normotensive, metoprolol being added as noted. Continue (5) Hypothyroidism: Plan: Hypothyroidism Continue Synthroid TSH pending Plan DVT prophylaxis: Anticoagulated Disposition: PCU CODE STATUS: Full code Diet: Heart healthy History of Present Illness Primary Care Provider: DULCE MARIA PCP Nayan is a 62-year-old male with a past medical history of hypertension, Hodgkin's lymphoma, pulmonary hypertension, and valvular disease s/p AV/MV replacement and pacer placement at [facility] was discharged 1 day ago. He presents to our institution with palpitations and a rapid heart rate, interrogation of his device shows 2-1 flutter since around midnight. No chest pain, troponin is mildly elevated at 118 which is suspected to be demand. This is trended. MV/AV/Single vessel bipass on the first. Was found to be bradycardic after, then had pacer placed. did well after. No prior history of afib or aflutter prior to this month, did have some rapid heart rate while in [facility] but pt does not know the details of this. +CAD and had a bipass at [facility]. No history of stents. No fever, chills, sweats No nausea/vomiting/diarrhea No syncope Palpatations greatly improved since being on amio/MTP. Feels better, ~90% improved in ER Follows with Dr. Carney and Dr. Chahal locally No tobacco use. 1 glass of wine a day, no issues with withdrawal at [facility] Medical History: Reviewed Medications: Reviewed Surgical History: Reviewed Family history: Reviewed Allergies: Reviewed Social History: No tobacco/etoh Code Status:Full Code .sm Allergies Allergy/AdvReac Type Severity Reaction Status Date / Time No Known Allergies Allergy Mild Verified 05/05/23 17:07 Home Medications Medication Instructions Recorded Confirmed Type aspirin 81 mg chewable tablet 81 mg PO QAM 08/26/19 05/05/23 History multivitamin (Multiple Vitamins 1 tab PO QAM 10/14/20 05/05/23 History tablet) omeprazole magnesium 20 mg 20 mg PO Q OTHER DAY 10/14/20 05/05/23 History tablet,delayed release (Prilosec OTC) levothyroxine 112 mcg tablet 112 mcg PO QAM 02/07/23 05/05/23 History acetaminophen 500 mg tablet 1,000 mg PO Q8H 05/05/23 05/05/23 History (Tylenol Extra Strength) furosemide 40 mg tablet 40 mg PO QAM 05/05/23 05/05/23 History latanoprost 0.005 % eye drops 1 drp OPB QPM 05/05/23 05/05/23 History oxycodone 5 mg tablet 5 mg PO Q4H PRN Pain (Scale Score 05/05/23 05/05/23 History 7-10) potassium chloride 20 mEq 20 meq PO BID 05/05/23 05/05/23 History tablet,extended release rosuvastatin 5 mg tablet 5 mg PO DAILY 05/05/23 05/05/23 History sennosides 8.6 mg-docusate sodium 1 tab-cap PO BID PRN Constipation 05/05/23 1 07/05/22 History 50 mg tablet (Senna-S) warfarin 3 mg tablet 3 mg PO QPM 05/05/23 05/05/23 History Past Med/Surg History Medical History (Updated 05/05/23 @ 17:49 by Ilia Paredes MD) Borderline glaucoma GERD (gastroesophageal reflux disease) Hodgkins lymphoma dx'd in his 20s. hx radiation. Aortic valve stenosis HLD (hyperlipidemia) HTN (hypertension) Cardiac murmur Moderate mitral regurgitation Vitamin D deficiency Hypothyroidism Pulmonary hypertension Surgical History History of wisdom tooth extraction History of colonoscopy Hx of splenectomy Family History Father Cardiac disorder Myocardial infarction Mother Hypertension Sister Breast cancer Denies family history of Ovarian cancer Prostate cancer Colorectal cancer Social History Smoking Status: Never smoker Second Hand Exposure: Yes (as a child); Do You Dip or Chew Tobacco: No; Hx Alcohol Use: Yes Alcohol type: wine Alcohol Intake Frequency: 2-3 x/Week Hx Substance Use: No Preferred Language: Romansh Communication Ability: Effective Visual Impairment: Limited Hearing Ability: Normal 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 NAD. Cooperative. HEENT: Atraumatic, normocephalic. PERLAA. EOM intact. Vision/hearing intact Pulm: CTAB A&P. -wheezes, -rales, -rhonchi. Symmetrical chest rise. No increased work of breathing. No respiratory distress. Thorax: Midline sternal incision well healing, surgical dressing C/D/I. Cardiac: irir 110-150 while in room. +SM. Radial pulses intact and symmetrical. Spontaneously convert to RRR 80s while in room. EKG pending to confirm sinus. Abdominal: Nontender, nondistended, soft. BS present. Results & Data Results & Data Vital Signs (Past 12 Hours) Vital Signs Temp Pulse Pulse Resp BP BP Pulse Ox 05/05/23 17:30 148 H 28 H 05/05/23 17:27 127/89 05/05/23 17:27 148 H 23 98 05/05/23 17:26 149 H 24 127/89 100 05/05/23 17:15 149 H 20 05/05/23 17:00 112/87 05/05/23 17:00 148 H 17 05/05/23 16:50 113/71 05/05/23 16:50 148 H 25 H 98 05/05/23 15:54 148 H 16 97 05/05/23 15:54 125/88 05/05/23 15:54 147 H 20 125/88 100 05/05/23 15:45 148 H 22 99 05/05/23 15:30 147 H 22 98 05/05/23 15:15 147 H 15 97 05/05/23 15:13 147 H 05/05/23 15:00 146 H 15 96 05/05/23 14:58 96 05/05/23 14:56 106/85 05/05/23 14:56 146 H 16 93 05/05/23 14:56 146 H 20 106/85 98 05/05/23 14:55 146 H 20 97 05/05/23 14:53 147 H 29 H 05/05/23 14:53 110/87 05/05/23 14:45 146 H 26 H 05/05/23 14:42 147 H 18 05/05/23 14:33 36.9 C 151 H 24 119/79 98 O2 Del Method 05/05/23 17:30 05/05/23 17:27 05/05/23 17:27 05/05/23 17:26 Room Air 05/05/23 17:15 05/05/23 17:00 05/05/23 17:00 05/05/23 16:50 05/05/23 16:50 05/05/23 15:54 05/05/23 15:54 05/05/23 15:54 Room Air 05/05/23 15:45 05/05/23 15:30 05/05/23 15:15 05/05/23 15:13 05/05/23 15:00 05/05/23 14:58 Room Air 05/05/23 14:56 05/05/23 14:56 05/05/23 14:56 Room Air 05/05/23 14:55 Room Air 05/05/23 14:53 05/05/23 14:53 05/05/23 14:45 05/05/23 14:42 05/05/23 14:33 Room Air PG Care Time/CCT Total # of Minutes Spent Total Time Spent with Patient: Total time spent is greater than 50% in coordination of care (as documented) at patient's floor/unit and/or counseling patient: Coding Level of Care Code 96473 INT INP/OBS CARE 3/75MIN Diagnoses Atrial flutter with rapid ventricular response I48.92 GERD (gastroesophageal reflux disease) K21.9 HLD (hyperlipidemia) E78.5 HTN (hypertension) I10 Hypothyroidism E03.9
[2023-05-05] MEDS ORDERED: MAGNESIUM SULFATE / D5W 1 GM/100 ML BAG IV ONE (20:12)
[2023-05-05] MEDS ORDERED: POLYETHYLENE (MIRALAX) 17 GM PACK PO PRN (20:12)
[2023-05-05] MEDS ORDERED: POTASSIUM CHLORIDE 10 MEQ TABCR PO STA (20:12)
[2023-05-05] MEDS ORDERED: DOCUSATE SODIUM/SENNA 50/8.6MG TAB PO PRN (20:12)
[2023-05-05] MEDS ORDERED: oxyCODONE HCL IR 5 MG TAB (IMMEDIATE RELEASE) PO PRN (20:12)
[2023-05-05] MEDS: ACETAMINOPHEN 500 MG TAB PO SCH (22:14)
[2023-05-05] MEDS: LATANOPROST 0.005% OP SOLN 2.5 ML BTL OPB SCH (22:14)
[2023-05-05] MEDS ORDERED: AMIODARONE / D5W 360 MG/200 ML BAG IV SCH (23:30)
[2023-05-06] MEDS: LEVOTHYROXINE SODIUM 112 MCG TABLET PO SCH (06:05)
[2023-05-06] MEDS: METOPROLOL TARTRATE 25 MG TAB PO SCH ×3 (06:05→16:54)
[2023-05-06] MEDS: ACETAMINOPHEN 500 MG TAB PO SCH ×3 (06:06→21:34)
[2023-05-06 06:45] LABS: Basophils # (auto) 0.15 K/uL (0.00-0.20); Basophils % (auto) 1.6 %; Eosinophils # (auto) 0.05 K/uL (0.00-0.50); Eosinophils % (auto) 0.5 %; Hemoglobin 10.2 g/dl (14.0-18.0); Immature Granulocytes # (auto) 0.04 K/uL (0.01-0.20); Immature Granulocytes % (auto) 0.4 %; Lymphocytes # (auto) 1.54 K/uL (1.20-3.40); Lymphocytes % (auto) 16.3 %; Mean Corpuscular Hemoglobin 31.1 pg (25.0-34.0); Mean Corpuscular Hgb Conc 32.9 g/dL (32.0-36.0); Mean Corpuscular Volume 94.5 fL (80.0-100.0); Mean Platelet Volume 9.7 fL (9.4-12.4); Monocytes # (auto) 1.19 K/uL (0.11-0.59); Monocytes % (auto) 12.6 %; Neutrophils # (auto) 6.45 K/uL (1.40-6.50); Neutrophils % (auto) 68.6 %; Platelet Count 689 K/uL (130-400); RDW Coefficient of Variation 14.3 % (11.5-14.5); RDW Standard Deviation 49.9 fL (36.4-46.3); Red Blood Count 3.28 M/uL (4.70-6.10); White Blood Count 9.42 K/ul (4.8-10.8)
[2023-05-06 06:49] LABS: BUN Creatinine Ratio 15.6 (10-20); Calcium 9.3 mg/dl (8.6-10.3); Creatinine Clr Calc Pharmacy 97.2 ml/min; Est GFR (African American) 107.2 ml/min; Est GFR (Non-African American) 92.5 ml/min; Potassium 4.3 mmol/L (3.5-5.1)
[2023-05-06 07:02] LABS: INR 3.1 (0.9-1.1); Prothrombin Time 31.8 Seconds (9.0-12.0)
[2023-05-06] MEDS ORDERED: PANTOprazole 40 MG TAB PO SCH (09:00)
[2023-05-06] MEDS: FUROSEMIDE 40 MG TAB PO SCH (09:20)
[2023-05-06] MEDS: POTASSIUM CHLORIDE CRTAB 20 MEQ TABCR PO SCH ×2 (09:20→21:36)
[2023-05-06] MEDS: ASPIRIN 81 MG CHEW PO SCH (09:20)
[2023-05-06] MEDS: ROSUVASTATIN CALCIUM 5 MG TAB PO SCH (09:21)
[2023-05-06] MEDS: MULTIVITAMIN TAB PO SCH (09:21)
[2023-05-06] MEDS ORDERED: WARFARIN SOD 3 MG TAB PO SCH (16:00)
--- NOTE | 2023-05-06 18:46 | Hospitalist Progress Note ---
Date of Service May 06, 2023 Assessment & Plan (1) Atrial flutter with rapid ventricular response: Plan: Atrial flutter, 2-1 block. Recent MV/AV/pacer placement at [facility] Case was reviewed by cardiothoracic surgery and cardiology at [facility]. Patient is not recommended for transfer at this time. Pharmacologic rate control is recommended. Patient started on amiodarone drip and is being loaded with metoprolol oral every 6 hours. Goal of transitioning to oral metoprolol, and if inadequate alone may need adjunct oral amiodarone. If this is not effective then they will schedule the patient for an outpatient ablation, although suspect that he will do well with metoprolol +/- amiodarone. -Currently rate is very well controlled with a heart rate of 60 He is anticoagulated with warfarin, INR was slightly supratherapeutic at 3.8. 1 dose is held on admission, INR today 3.1 Optimize potassium 4.0, magnesium 2.0 Cardiology consulted, awaiting response Echo pending Troponin trended Lasix continued, aspirin continued, rosuvastatin Chest x-ray does not show any acute fluid overload. BNP is slightly elevated, will continue baseline Lasix dosing. No RANDOLPH. Patient is normotensive and no emergent cardioversion is indicated at time of admission (2) GERD (gastroesophageal reflux disease): Plan: GERD Continue PPI every other day, may convert omeprazole to Protonix while in patient (3) HLD (hyperlipidemia): Plan: Statin continue (4) HTN (hypertension): Plan: Normotensive, metoprolol being added as noted. Continue (5) Hypothyroidism: Plan: Hypothyroidism Continue Synthroid TSH pending Plan DVT prophylaxis: Anticoagulated Disposition: PCU CODE STATUS: Full code Diet: Heart healthy Admission and Anticipated Discharge Date Admission Date: May 05, 2023 Physical Exam Physical Exam: General: A&Ox3. NAD. Cooperative. HEENT: Atraumatic, normocephalic. PERLAA. EOM intact. Vision/hearing intact Pulm: CTAB A&P. -wheezes, -rales, -rhonchi. Symmetrical chest rise. No increased work of breathing. No respiratory distress. Thorax: Midline sternal incision well healing, surgical dressing C/D/I. Cardiac: irir 110-150 while in room. +SM. Radial pulses intact and symmetrical. Spontaneously convert to RRR 80s while in room. EKG pending to confirm sinus. Abdominal: Nontender, nondistended, soft. BS present. Results & Data Results & Data Vital Signs (Past 12 Hours) Vital Signs Temp Pulse Pulse Resp BP Pulse Ox O2 Del Method 05/06/23 16:51 37.0 C 60 18 114/69 98 Room Air 05/06/23 15:19 69 05/06/23 12:01 36.7 C 68 20 109/67 96 Room Air 05/06/23 07:53 36.9 C 60 20 112/68 98 Room Air 05/06/23 07:33 67 PG Care Time/CCT Total # of Minutes Spent Total Time Spent with Patient: Total time spent is greater than 50% in coordination of care (as documented) at patient's floor/unit and/or counseling patient: Coding Level of Care Code 26729 SUB INP/OBS CARE 2/35MIN Diagnoses Atrial flutter with rapid ventricular response I48.92 GERD (gastroesophageal reflux disease) K21.9 HLD (hyperlipidemia) E78.5 HTN (hypertension) I10 Hypothyroidism E03.9
--- NOTE | 2023-05-06 20:09 | Electrocardiogram Report ---
Test Reason : Blood Pressure : / mmHG Vent. Rate : 147 BPM Atrial Rate : 000 BPM P-R Int : 000 ms QRS Dur : 132 ms QT Int : 330 ms P-R-T Axes : 000 040 221 degrees QTc Int : 516 ms Wide QRS tachycardia , suspect supraventricular origin Left ventricular hypertrophy with QRS widening and repolarization abnormality ( Fly product , Rom hilt-Moser ) Abnormal ECG No previous ECGs available Confirmed by Amanuel Bacon ([id number]) on 05/06/2023 8:09:24 PM Referred By: REFERRED SELF Confirmed By:Amanuel Bacon
[2023-05-06] MEDS: LATANOPROST 0.005% OP SOLN 2.5 ML BTL OPB SCH (21:27)
[2023-05-07] MEDS: METOPROLOL TARTRATE 25 MG TAB PO SCH ×3 (00:21→11:54)
[2023-05-07] MEDS: LEVOTHYROXINE SODIUM 112 MCG TABLET PO SCH (04:53)
[2023-05-07] MEDS: ACETAMINOPHEN 500 MG TAB PO SCH (05:02)
--- NOTE | 2023-05-07 05:53 | Electrocardiogram Report ---
Test Reason : Blood Pressure : / mmHG Vent. Rate : 088 BPM Atrial Rate : 088 BPM P-R Int : 238 ms QRS Dur : 098 ms QT Int : 372 ms P-R-T Axes : 053 023 188 degrees QTc Int : 450 ms Atrial-sensed ventricular-paced rhythm with prolonged AV conduction with Fusion complexes Abnormal ECG When compared with ECG of 05-MAY-2023 14:39, (unconfirmed) Electronic ventricular pacemaker has replaced Wide QRS tachycardia Vent. rate has decreased BY 59 BPM Confirmed by Amanuel Bacon ([id number]) on 05/07/2023 5:53:40 AM Referred By: REFERRED SELF Confirmed By:Amanuel Bacon
[2023-05-07] MEDS: MULTIVITAMIN TAB PO SCH (08:10)
[2023-05-07] MEDS: ROSUVASTATIN CALCIUM 5 MG TAB PO SCH (08:10)
[2023-05-07] MEDS: FUROSEMIDE 40 MG TAB PO SCH (08:10)
[2023-05-07] MEDS: ASPIRIN 81 MG CHEW PO SCH (08:15)
[2023-05-07] MEDS: POTASSIUM CHLORIDE CRTAB 20 MEQ TABCR PO SCH (08:15)
[2023-05-07 08:45] LABS: Basophils # (auto) 0.14 K/uL (0.00-0.20); Basophils % (auto) 1.3 %; Eosinophils # (auto) 0.03 K/uL (0.00-0.50); Eosinophils % (auto) 0.3 %; Hematocrit (blood only) 34.1 % (42.0-52.0); Immature Granulocytes # (auto) 0.04 K/uL (0.01-0.20); Immature Granulocytes % (auto) 0.4 %; Lymphocytes # (auto) 1.35 K/uL (1.20-3.40); Lymphocytes % (auto) 12.3 %; Mean Corpuscular Hemoglobin 30.6 pg (25.0-34.0); Mean Corpuscular Hgb Conc 32.3 g/dL (32.0-36.0); Mean Platelet Volume 9.6 fL (9.4-12.4); Monocytes # (auto) 0.86 K/uL (0.11-0.59); Monocytes % (auto) 7.9 %; Neutrophils # (auto) 8.53 K/uL (1.40-6.50); Neutrophils % (auto) 77.8 %; Platelet Count 851 K/uL (130-400); RDW Coefficient of Variation 14.4 % (11.5-14.5); RDW Standard Deviation 49.8 fL (36.4-46.3); Red Blood Count 3.59 M/uL (4.70-6.10); White Blood Count 10.95 K/ul (4.8-10.8)
[2023-05-07 09:05] LABS: BUN Creatinine Ratio 16.8 (10-20); Calcium 9.4 mg/dl (8.6-10.3); Est GFR (African American) 100.4 ml/min; Est GFR (Non-African American) 86.7 ml/min; Potassium 4.3 mmol/L (3.5-5.1)
[2023-05-07 09:06] LABS: INR 2.3 (0.9-1.1); Prothrombin Time 23.6 Seconds (9.0-12.0)
--- NOTE | 2023-05-07 10:05 | Cardiology Consultation ---
Date of Consultation May 07, 2023 Assessment & Plan (1) Atrial flutter with rapid ventricular response: (2) S/P aortic valve replacement with bioprosthetic valve: (3) S/P mitral valve replacement with tissue valve: (4) S/P CABG x 1: (5) S/P placement of cardiac pacemaker: (6) On anticoagulant therapy: Plan 62-year-old man with remote Hodgkin's lymphoma subsequent radiation-induced valvular disease for which he underwent extensive recent cardiac surgery complicated by atrial tachydysrhythmias and requiring pacemaker placement. On 05/05/2023, he had a transient episode of wide-complex tachycardia which via pacemaker interrogation appear to be atrial flutter with 2-1 block, this resolved promptly on an amiodarone drip. The drip was discontinued after about 6 hours and he was placed on metoprolol tartrate 25 mg every 6 hours. Fortunately, he has had no recurrence of tachydysrhythmia. Given the marked rate elevation, might have considered continuing amiodarone longer postoperatively, but since he has had no recurrence on the metoprolol alone would be reasonable to discharge him on beta-teresita without amiodarone. Would consolidate metoprolol and switch from metoprolol to tartrate 25 mg every 6 hours to metoprolol succinate 50 mg twice daily upon discharge. He is borderline orthostatic and appears euvolemic, would discontinue furosemide with instructions to restart only if he has abrupt weight gain (2 pounds overnight or 5 pounds in a week) or other evidence of volume retention. Duration of anticoagulation uncertain, but necessary in the near term given recent atrial dysrhythmias in the context of bioprosthetic valves. INR therapeutic today, he could be enrolled in the hospital anticoagulation clinic or through our office but will need close follow-up of INRs. Excellent valve function on auscultation. Postoperative echocardiogram likely will be obtained at [place] or could be obtained in our office in a few weeks time, no need for immediate study. Okay for discharge from a cardiac standpoint, he is to be seen at [place] in 2 days time and I would like to see him in the office in 3 to 4 weeks. History of Present Illness Reason for Consultation: Atrial flutter Requesting Physician: Jay Szymanski MD Attending Physician: Jay Szymanski MD History of Present Illness 62-year-old man with history of remote Hodgkin's lymphoma and subsequent radiation induced valvular heart disease who is status post significant cardiac surgery on 04/25/2023 (mitral and aortic valve tissue replacements, CABG x1 with SVG to OM2, subsequent [employer]onic dual-chamber pacemaker placement on 05/03/23), who was discharged from [facility] several days ago but noted tachypalpitations and was admitted the evening of 05/05/2023 with transient atrial flutter with rapid ventricular response. During his postoperative stay at [place], it appears that he developed atrial flutter 5 days after surgery and subsequently developed heart block requiring a pacemaker. Ultimately, he remained in sinus for several days and was not discharged on any antiarrhythmic or beta-teresita. Upon returning home he had been feeling well, noting no dyspnea, orthopnea, or leg edema. He had no palpitations prior to or subsequent to those prompting admission the evening of 05/05. He was able to lie flat when sleeping at night and able to ambulate during the day without difficulty. He does note a generalized sense of fatigue and mild orthostatic lightheadedness when standing but denies any presyncope or syncope. At the time of my evaluation this morning, he was comfortable and had no somatic complaints. Allergies Allergy/AdvReac Type Severity Reaction Status Date / Time No Known Allergies Allergy Mild Verified 05/05/23 17:07 Home Medications Medication Instructions Recorded Confirmed Type aspirin 81 mg chewable tablet 81 mg PO QAM 08/26/19 05/05/23 History multivitamin (Multiple Vitamins 1 tab PO QAM 10/14/20 05/05/23 History tablet) omeprazole magnesium 20 mg 20 mg PO Q OTHER DAY 10/14/20 05/05/23 History tablet,delayed release (Prilosec OTC) levothyroxine 112 mcg tablet 112 mcg PO QAM 02/07/23 05/05/23 History acetaminophen 500 mg tablet 1,000 mg PO Q8H 05/05/23 05/05/23 History (Tylenol Extra Strength) furosemide 40 mg tablet 40 mg PO QAM 05/05/23 05/05/23 History latanoprost 0.005 % eye drops 1 drp OPB QPM 05/05/23 05/05/23 History oxycodone 5 mg tablet 5 mg PO Q4H PRN Pain (Scale Score 05/05/23 05/05/23 History 7-10) potassium chloride 20 mEq 20 meq PO BID 05/05/23 05/05/23 History tablet,extended release rosuvastatin 5 mg tablet 5 mg PO DAILY 05/05/23 05/05/23 History sennosides 8.6 mg-docusate sodium 1 tab-cap PO BID PRN Constipation 05/05/23 05/05/23 History 50 mg tablet (Senna-S) warfarin 3 mg tablet 3 mg PO QPM 05/05/23 05/05/23 History Patient History Medical History (Updated 05/07/23 @ 10:45 by Joel Carney MD) Moderate mitral regurgitation Coronary artery calcification seen on CAT scan Mild aortic regurgitation Severe aortic stenosis Pulmonary hypertension Borderline glaucoma GERD (gastroesophageal reflux disease) Hodgkins lymphoma dx'd in his 20s. hx radiation. Aortic valve stenosis HLD (hyperlipidemia) HTN (hypertension) Cardiac murmur Vitamin D deficiency Hypothyroidism Surgical History (Updated 05/07/23 @ 10:42 by Joel Carney MD) History of wisdom tooth extraction History of colonoscopy Hx of splenectomy Family History Father Cardiac disorder Myocardial infarction Mother Hypertension Sister Breast cancer Denies family history of Ovarian cancer Prostate cancer Colorectal cancer Social History Smoking Status: Never smoker Second Hand Exposure: No; Do You Dip or Chew Tobacco: No; Hx Alcohol Use: Yes Alcohol type: wine Alcohol Intake Frequency: 2-3 x/Week Hx Substance Use: No Preferred Language: Lithuanian Communication Ability: Effective Visual Impairment: Limited Hearing Ability: Normal Clinical Team Lead Required: No Beliefs That Will Affect Care: None marital status: Current Living Situation: Family Current Living Situation Comment: son and daughter still at home, daughter is 17 current occupational status: employed current occupation: [employer] How many Children do You have: 2 Other Information That Helps Us Care for You: No Feels Safe at Home: Yes Safety Concerns: Feels Safe At This Time Childhood Exposure to Second-Hand Smoke: Yes caffeine: Yes Dental Care, Regularly: Yes Physical Activity Frequency: Daily Seatbelt Use: always Sunscreen Use: Yes Assistive Devices: Glasses Physical Exam Physical Exam: No distress. BP by MD 102/60 mmHg, SBP transiently dropped to 80 mmHg upon standing before returning to baseline (mild lightheadedness). Pulse 60 bpm and regular. Skin: Postoperative chest wall ecchymoses. No generalized lesions. HEENT: unremarkable. Neck: JVP one third of the way to the angle of the jaw at 90 degrees, no carotid bruits. Lungs: Mild dullness at the bases, but generally clear. Cardiac: regular rhythm, normal S1-2, 2/6 right upper sternal border systolic ejection murmur which is nonradiating, crisp aortic closure sound, no mitral region systolic or diastolic murmur. No rub. Abdomen: benign. Extremities: no edema, pulses intact. Neurologic: normal affect and conversation, nonfocal. Results & Data Laboratory Results Troponin values of 125 and 118. Normal electrolytes, BUN 16, creatinine 0.95. Hemoglobin 11. BNP 403. INR was 3.8 on admission and 2.3 today. Diagnostic Findings Initial ECG showed wide-complex tachycardia at 147 bpm, subsequent pacemaker interrogation showed this to be atrial flutter with 2-1 AV block with wide- complex due to LVH with repolarization abnormalities. Subsequent ECG showed atrial sensed ventricular paced rhythm at 88 bpm with AZ interval 0.24 seconds. Chest x-ray was unremarkable. PG Care Time/CCT Total # of Minutes Spent Total Time Spent with Patient: Total time spent is greater than 50% in coordination of care (as documented) at patient's floor/unit and/or counseling patient: Coding Level of Care Code 45772 IN/OBS CONSULT LVL 4,60M Diagnoses Atrial flutter with rapid ventricular response I48.92 S/P aortic valve replacement with bioprosthetic valve Z95.3 S/P mitral valve replacement with tissue valve Z95.3 S/P CABG x 1 Z95.1 S/P placement of cardiac pacemaker Z95.0 On anticoagulant therapy Z79.01
--- NOTE | 2023-05-07 12:48 | Discharge Summary ---
Date of Service May 07, 2023 Admission HPI Per Admitting Provider Nayan is a 62-year-old male with a past medical history of hypertension, Hodgkin's lymphoma, pulmonary hypertension, and valvular disease s/p AV/MV replacement and pacer placement at [facility] was discharged 1 day ago. He presents to our institution with palpitations and a rapid heart rate, interrogation of his device shows 2-1 flutter since around midnight. No chest pain, troponin is mildly elevated at 118 which is suspected to be demand. This is trended. MV/AV/Single vessel bipass on the first. Was found to be bradycardic after, then had pacer placed. did well after. No prior history of afib or aflutter prior to this month, did have some rapid heart rate while in [facility] but pt does not know the details of this. +CAD and had a bipass at [facility]. No history of stents. No fever, chills, sweats No nausea/vomiting/diarrhea No syncope Palpatations greatly improved since being on amio/MTP. Feels better, ~90% improved in ER Follows with Dr. Carney and Dr. Chahal locally No tobacco use. 1 glass of wine a day, no issues with withdrawal at [facility] Medical History: Reviewed Medications: Reviewed Surgical History: Reviewed Family history: Reviewed Allergies: Reviewed Social History: No tobacco/etoh Code Status:Full Code .sm Principal Diagnosis aflutter Discharge Exam The patient is awake, alert and oriented 3, well developed and well nourished, normocephalic and atraumatic, lying in bed and in no acute distress. HEENT--PERRL, EOMI, mucous membranes and oropharynx mildly dry Neck--supple. No JVD. No bruits. Thyroid normal, trachea midline, no adenopathy. Heart--normal S1 and S2. No murmurs, rubs or gallops. Lungs--clear bilaterally, no respiratory distress, no accessory muscle use. Abdomen--normal bowel sounds and soft. Mild epigastric and left sided abdominal pain Extremities--no cyanosis or clubbing. No edema. Dermatologic--normal skin turgor, normal color, no abnormal lymph nodes, no rash. Neurologic--cranial nerves II through XII grossly intact. Rheumatologic--normal range of motion. Psychiatric--normal affect. Discharge Data Allergies Allergy/AdvReac Type Severity Reaction Status Date / Time No Known Allergies Allergy Mild Verified 05/05/23 17:07 Consultations 05/05/23 17:49 ED Decision to Admit Stat 05/06/23 13:32 Consult Cardiology Routine Hospital Course (1) Atrial flutter with rapid ventricular response: Atrial flutter, 2-1 block. Recent MV/AV/pacer placement at [facility] Case was reviewed by cardiothoracic surgery and cardiology at [facility]. Patient is not recommended for transfer at this time. Pharmacologic rate control is recommended. Patient started on amiodarone drip and is being loaded with metoprolol oral every 6 hours. An episode of wide-complex tachycardia which appears to be atrial flutter with 2-1 block. This resolved following amiodarone drip. Evaluated by cardiology, metoprolol will be switched from tartrate to metoprolol succinate 50 mg twice daily. Upon discharge, will also discontinue Lasix. Patient was instructed to resume Lasix if she gains about 2 pounds in weight overnight or 5 pounds in a week. Also urged to follow-up with cardiology and anticoagulation clinic outpatient. (2) GERD (gastroesophageal reflux disease): GERD Continue PPI every other day, may convert omeprazole to Protonix while in patient (3) HLD (hyperlipidemia): Statin continue (4) HTN (hypertension): Normotensive, metoprolol being added as noted. Continue (5) Hypothyroidism: Hypothyroidism Continue Synthroid TSH pending Plan DVT prophylaxis: Anticoagulated Disposition: PCU CODE STATUS: Full code Diet: Heart healthy Total Time Total Time Spent Total Time Spent (In Minutes): 35 Discharge Plan Discharge Items Patient Disposition: Home - Self-Care Reason For Visit: AFLUTTER RVR Discharge Diagnosis: a flutter Activity: Resume your previous activity Non-emergency contact: Primary Care Provider and Leather Heel Breaster Call non-emergency contact if: you have any medication questions Follow-up/Referrals: PCP,NO [Primary Care Provider] - Diet: Heart Healthy Addtl Attending Provider Instructions: Cardiology discontinued your furosemide ,restart only if you have abrupt weight gain (2 pounds overnight or 5 pounds in a week) or other evidence of volume retention like leg swelling. Follow up with your anticoagulation clinic and also cardiology Pending Studies at Discharge: No Stand-Alone Forms: My [facility], Smoking Cessation Medications and DC Order Prescriptions: New metoprolol succinate 50 mg tablet extended release 24 hr 50 mg PO BID Qty: 60 0RF Continued aspirin 81 mg tablet,chewable 81 mg PO QAM Prilosec OTC 20 mg tablet,delayed release (DR/EC) 20 mg PO Q OTHER DAY multivitamin [Multiple Vitamins] Tablet 1 tab PO QAM levothyroxine 112 mcg tablet 112 mcg PO QAM latanoprost 0.005 % drops 1 drp OPB QPM sennosides-docusate sodium [Senna-S] 8.6-50 mg Tablet 1 tab-cap PO BID PRN (Reason: Constipation) acetaminophen [Tylenol Extra Strength] 500 mg Tablet 1,000 mg PO Q8H warfarin 3 mg tablet 3 mg PO QPM oxycodone 5 mg tablet 5 mg PO Q4H PRN (Reason: Pain (Scale Score 7-10)) rosuvastatin 5 mg tablet 5 mg PO DAILY Discontinued furosemide 40 mg tablet 40 mg PO QAM Rx Instructions: STARTED 05/04/23 FOR 7 DAYS potassium chloride 20 mEq tablet extended release 20 meq PO BID Rx Instructions: STARTED 05/04/23 FOR 7 DAYS Discharge Orders: Discharge Order (Routine); Ordered 05/07/23 Ordered By: Jay Mosher/Other Patient Handouts: Metoprolol Oral Tablet Admission Data Admit Date/Time: 05/05/23 17:53 Attending Provider: Jay Szymanski Admit Provider: Ilia Paredes Primary Care Provider: PCP,NO Other Providers: Ilia Paredes; Amnauel Bacon Other Interventions: Discharge Summary Assessment (RN) Last Done: 05/07/23 12:25 Coding Level of Care Code 23252 INP/OBS DISCH >30 MIN Diagnoses Atrial flutter with rapid ventricular response I48.92 GERD (gastroesophageal reflux disease) K21.9 HLD (hyperlipidemia) E78.5 HTN (hypertension) I10 Hypothyroidism E03.9 Time Spent (min) 35
--- OUTSIDE RECORDS SUMMARY | 2023-05-08 21:06 | External Medical Summary | Continuity of Care Document ---
Author Name Unknown Organization [facility] [address] [place] [id number] Care Team Providers Care Student Ministries Director Name Role Phone Ilia Chahal Primary Care Physician [phone] [id number] Date(s): 04/04/23 - 04/04/23 [facility] [address] [place] [phone] Discharge Disposition: Home or Self Care Attending Physician: MD Sotelo Kentaro Referring Physician: MD Sotelo Kentaro Allergies, Adverse Reactions, Alerts No Known Allergies Medications amLODIPine 5 mg oral tablet 1 tab, PO, Daily, + Amlodipine 2.5mg for total of 7.5mg daily Start Date: 10/28/18 Status: Ordered aspirin 81 mg oral delayed release tablet Start: 03/24/21 9:46:00 EDT, 1 tab, PO, Daily Start Date: 03/24/21 Status: Ordered hydroCHLOROthiazide-triamterene 25 mg-37.5 mg oral capsule 1 cap, PO, Daily Start Date: 10/28/18 Status: Ordered latanoprost 0.005% ophthalmic solution Start: 04/04/23 9:04:00 EDT, 1 drop, both eyes, qPM Start Date: 04/04/23 Status: Ordered levothyroxine 112 mcg (0.112 mg) oral tablet 1 tab, PO, Daily, ON AN EMPTY STOMACH BEFORE BREAKFAST Start Date: 10/28/18 Status: Ordered Multiple Vitamins oral capsule Start: 04/04/23 9:03:00 EDT, 1 cap, PO, Daily Start Date: 04/04/23 Status: Ordered omeprazole Start: 04/04/23 9:18:00 EDT, 20 mg =, PO, Daily, every other day Start Date: 04/04/23 Status: Ordered rosuvastatin 5 mg oral tablet Start: 04/04/23 9:04:00 EDT, 1 tab, PO, Daily, M-W- Start Date: 04/04/23 Status: Ordered Vitamin D3 1000 intl units (25 mcg) oral capsule Start: 04/04/23 9:04:00 EDT, 1 cap, PO, Daily Start Date: 04/04/23 Status: Ordered Problem List Condition Confirmation Course Effective Dates Status H ealth Status Informant Multiple nevi Confirmed Active Coronary artery disease involving soboba heart Confirmed Active Mixed dyslipidemia Confirmed Active Epidermoid cyst Confirmed Active Epidermal cyst Confirmed Active Hypertension with heart disease Confirmed Active History of Hodgkin's lymphoma Confirmed Active Mitral valve stenosis and regurgitation Confirmed Active Severe calcific aortic valve stenosis Confirmed Active Skin tag Confirmed Active Diagnosis Diagnosis Type Effective Dates Health Status Cl inical Service Informant Coronary artery disease involving soboba heart 04/04/23 Non-Specified Severe calcific aortic valve stenosis 04/04/23 Non-Specified Procedures Procedure Date Related Diagnosis Body Site Status Excision of cyst central upper back 03/24/21 Completed partial left hyroidectomy 1985 Completed splenectomy 1985 Completed Colonoscopy Completed Results Radiology Reports * Exam Date Time Procedure Performing Provider Status 04/04/23 12:03 PM XR Chest 2 Views Felicitas Boyd Notes: (XR Chest 2 Views) Reason For Exam: Pre-Op Cardio Thoracic Surgery XR Chest 2 Views EXAMINATION: XR Chest 2 Views CLINICAL HISTORY: I35.0: Nonrheumatic aortic (valve) stenosis; I25.10: Atherosclerotic heart disease of soboba coronary a; I35.0: Nonrheumatic aortic (valve) stenosis; I25.10: Atherosclerotic heart disease of soboba coronary a; Pre-Op Cardio Thoracic Surgery COMPARISON: CTA chest abdomen pelvis 03/12/2023 FINDINGS: PA and lateral view of the chest. Normal cardiac silhouette and pulmonary vasculature. Calcified paratracheal lymph nodes again seen. Haziness of the lower lungs likely due to soft tissue attenuation. Otherwise no significant parenchymal opacity or consolidation. No evidence of pneumothorax or pleural effusion. No acute osseous abnormality. Surgical clips in the upper abdomen. IMPRESSION: No acute radiographic abnormality. Workstation ID: [id number] Final Dictated by:MD Mcdowell Sparsh Dictated DT/TM:04/04/2023 1:29 Signed by:MD Mcdowell Sparsh Signed (Electronic Signature):04/04/2023 1:28 p Social History Social History Type Response Smoking Status Never smoked cigaret lisa Sex Male Patient Care team information Care Team Personnel Name: MD Chahal Paul Position: Referring DIRECT Member Role: Primary Care Provider Address: Address: [address] [facility] [address] [place] [address] Name: Omari Betancourt Position: HIS Supervisor_P Member Role: HIS Lifetime Care Team Related Persons Name: SAHIL VINES
--- OUTSIDE RECORDS SUMMARY | 2023-05-08 21:06 | External Medical Summary | Continuity of Care Document ---
Author Name Unknown Organization [facility] Address [address] [place], [place] [id number] Care Team Providers Care Shoe Stock Associate Name Role Phone Ilia Chahal Primary Care Physician [phone] [facility] [id number] Date(s): 03/12/23 - 03/12/[address] [phone] Discharge Disposition: Home or Self Care Attending Physician: MD Sotelo Kentaro Allergies, Adverse Reactions, Alerts No Known Allergies Medications amLODIPine 5 mg oral tablet TAKE 1 TAB BY MOUTH DAILY Start Date: 10/28/18 Status: Ordered aspirin 81 mg oral delayed release tablet Start: 03/24/21 9:46:00 EDT, 1 tab, PO, Daily Start Date: 03/24/21 Status: Ordered atorvastatin Start: 03/12/23 11:53:00 EDT Start Date: 03/12/23 Status: Ordered hydroCHLOROthiazide-triamterene 25 mg-37.5 mg oral capsule TAKE 1 CAPSULE BY MOUTH DAILY Start Date: 10/28/18 Status: Ordered levothyroxine 112 mcg (0.112 mg) oral tablet TAKE 1 TABLET BY MOUTH EVERY MORNING ON AN EMPTY STOMACH BEFORE BREAKFAST Start Date: 10/28/18 Status: Ordered Problem List Condition Confirmation Course Effective Dates Status Health St atus Informant Multiple nevi Confirmed Active Epidermoid cyst Confirmed Active Epidermal cyst Confirmed Active Skin tag Confirmed Active Procedures Procedure Date Related Diagnosis Body Site Status Excision 03/24/21 Completed Social History Social History Type Response Smoking Status Never smoked cigaret lisa Sex Male Patient Care team information Care Team Personnel Name: MD Chahal Paul Position: Referring DIRECT Member Role: Primary Care Provider Address: Address: [address] [place] [address] [address] [place] [address] [place] Name: Omari Betancourt Position: HIS Supervisor_P Member Role: HIS Lifetime Care Team Related Persons Name: CREWS, SAHIL
--- OUTSIDE RECORDS SUMMARY | 2023-05-08 21:06 | External Medical Summary | Continuity of Care Document ---
Author Name Unknown Organization [facility] [address] [place] [id number] Care Team Providers Care Isotope Hydrologist Name Role Phone Ilia Chahal Primary Care Physician [phone] Encounter [facility] [id number] Date(s): 04/04/23 - 04/04/23 [facility] [address] [facility] [address], [address], [address] [place] [address] Encounter Diagnosis Body mass index [BMI] 24.0-24.9, adult(Discharge Diagnosis) - 04/04/23 Pre-op exam(Discharge Diagnosis) - 04/04/23 Discharge Disposition: Home or Self Care Attending Physician: MD Heard Wilson C Referring Physician: MD Sotelo Kentaro Allergies, Adverse [...] 04/04/23 9:04:00 EDT, 1 tab, PO, Daily, M-W-F Start Date: 04/04/23 Status: Ordered Vitamin D3 1000 intl units (25 mcg) oral capsule Start: 04/04/23 9:04:00 EDT, 1 cap, PO, Daily Start Date: 04/04/23 Status: Ordered Mental Status 04/04/23 Barriers to Learning one year Vision imp airment Mandatory Health Literacy Documentation Yes Health Literacy Communication Barriers N ever Primary Language [place] Zealander Problem List Condition Confirmation Course Effective Dates Status H ealth Status Informant Multiple nevi Confirmed Active Coronary artery disease involving [place] heart Confirmed Active Mixed dyslipidemia Confirmed Active Epidermoid cyst Confirmed Active Epidermal cyst Confirmed Active Hypertension with heart disease Confirmed Active History of Hodgkin's lymphoma Confirmed Active Mitral valve stenosis and regurgitation Confirmed Active Severe calcific aortic valve stenosis Confirmed Active Skin tag Confirmed Active Diagnosis Diagnosis Type Effective Dates Health Status Cl inical Service Informant Pre-op exam Discharge Diagnosis 04/04/23 Body mass index [BMI] 24.0-24.9, adult Discharge Diagnosis 04/04/23 Non-Specified Procedures Procedure Date Related Diagnosis Body Site Status Excision of cyst central upper back 03/24/21 Completed partial left hyroidectomy 1985 Completed splenectomy 1985 Completed Colonoscopy Completed Vital Signs Most recent to oldest [Reference Range]: 1 Height 187 cm (04/04/23 8:58 AM) Patient Weight 86 kg (04/04/23 8:58 AM) Body Mass Index 24.59 kg/m2 (04/04/23 8:58 AM) Temperature [36.5-37.9 DegC] 36.4 DegC *LOW* (04/04/23 8:58 AM) Heart Rate 81 bpm (04/04/23 8:58 AM) Respiratory Rate 18 br/min (04/04/23 8:58 AM) Blood Pressure 130/81mmHg (04/04/23 8:58 AM) Mean Blood Pressure 92 mmHg (04/04/23 8:58 AM) Cuff Pulse Pressure 49 mmHg (04/04/23 8:58 AM) Social History Social History Type Response Smoking Status Never smoked cigaret lisa Sex Male Radiology * Contributor_system, [id number]: VERIFY, PERFORM Event Display: EKG Authored Date: Please click on link to see image. Alcides H&P * MD Heard Wilson C: SIGN MD Heard Wilson C: SIGN, VERIFY MD Heard Wilson C: VERIFY, SIGN, PERFORM SOFÍA Sepulveda Lauren R: PERFORM, MODIFY SOFÍA Sepulveda Lauren R: MODIFY, MODIFY SOFÍA Sepulveda Lauren R: MODIFY MD Shaver Taylor: MODIFY Event Display: Anes H&P Authored Date: Patient: ENMA VINES Jr. Age: 62 years Sex: Male : 1960 Associated Diagnoses: None Author: SOFÍA Sepulveda Lauren R Preoperative Information Anesthesia Preop Info: Procedure: . Date: 04/25/23 07:00 Surgeons: MD Sotelo Kentaro Diagnosis: AORTIC STENOSIS, MITRAL VALVE REGURGITATION, CORNONARY ARTERY DISEASE Procedure: AORTIC VALVE REPAIR/REPLACE, MITRAL VALVE REPAIR/REPLACE, CABG Date: 04/25/23 07:00 Surgeons: MD Sotelo Kentaro Diagnosis: AORTIC STENOSIS, MITRAL VALVE REGURGITATION, CORNONARY ARTERY DISEASE Procedure: . Date: 04/25/23 07:00 Surgeons: MD Sotelo Kentaro Diagnosis: AORTIC STENOSIS, MITRAL VALVE REGURGITATION, CORNONARY ARTERY DISEASE . History of Present Illness 62 year old male scheduled for above. He has preop appt with surgical team following [facility] appt today. He received both covid-19 vaccines + booster (multiple) Anesthesia History PONV: Yes, with cardiac cath + colonoscopy. History of Motion Sickness: Denies. Patient Complications: Negative. Family History of Anesthesia Problems: Negative. Functional Capacity 4-6 METS = Moderate: Able to climb 1 flight of stairs at regular pace without stopping. Symptoms: denies SOB/CP when walking up stairs. Reports SOB with yardwork/pushing soda flaker, longer distance walking. Denies CP with activity. Reports over past few months has experienced some chesttightness in the evening, resolves within few minutes. Medical History Cardiovascular: F/b Cardiology from different facility, See studies or note below. Hypertension: Triamterene, HCTZ, Calcium channel teresita, Well controlled, monitors BP at home, [id number]. CAD: coronary angiogram on 02/13/2023 showed 50% mid-LAD, 60-70% ostial OM1, 100% ostial RCA lesions. Rx ASA 81mg. Valves: TTE on 01/18/2023 showed severe aortic stenosis with AV area of 0.6 sq cm with preserved LV systolic function with LVEF 55-60%. A [place] was obtained on 02/13/2023 and his mitral valve showed moderate regurgitation and [id number] stenosis with leaflet and annular calcification. Endocrine/Metabolic: Thyroid: S/P Surgical resection (partial), Hypothyroidism, Stable dose of thyroid medication. Hematologic: s/p splenectomy age 25. Anemia ("intermittent since age 25"): No transfusions. Gastrointestinal: GERD: Omeprazole. Oncology: history of Hodgkin's lymphoma age 25 treated with radiation therapy. No chemo. In remission. Health Status Allergies: Allergic Reactions (Selected) NKA. Histories Procedure History: Excision of cyst central upper back ([id number]) on 03/24/2021 at 60 Years. partial left hyroidectomy ([id number]) in 1985 at 25 Years. splenectomy ([id number]) in 1985 at 25 Years. Colonoscopy ([id number]). . Social History: Cigarrette Smoker? Never smoked cigarettes Other Tobacco Use: Never used other tobacco products Alcohol Frequency: Daily Alcohol Type: Wine Recreational Drugs: Denies . Physical Examination VS/Measurements: 04/04/2023 08:58 Temp: 36.4 Pulse: 81 BP: 130/81 MAP: 92 RR: 18 SPO2: 99 FIO2: Wt(kg): 86.0 BMI: 25 Height(cm): 187 . General: Alert, Oriented, Well developed, Well-nourished. Airway: Mallampati classification: III (soft palate, base of uvula visible). Hyomental Distance: 30-40mm, Receding chin. Mouth: Within normal limits. Teeth: Multiple capped molars, Denies loose/broken teeth. Head: Normocephalic, Glasses. Neck: Supple, Good extension, Good flexion. Trachea: Midline. Respiratory: CTA bilaterally. Cardiovascular: Heart: RRR, 3/6 high pitched systolic murmur RUSB with radiation. Edema: None. Gastrointestinal: Soft, Normal bowel sounds, Non-tender. Musculoskeletal: Normal strength. Neurologic: Normal sensory, Normal motor, No focal deficits. Assessment and Plan Medications: Pre-Surgery Medication Instructions Please bring a list of your medications with you on the day of procedure and include the date and time you last took each medication. amLODIPine (amLODIPine 5 mg oral tablet) 1 tab by mouth once daily .+ Amlodipine 2.5mg fortotal of 7.5mg daily Take the morning of procedure. aspirin (aspirin 81 mg oral delayed release tablet) 1 tab by mouth once daily . Do not take morning of procedure per surgical team. Resume after procedure as directed by surgical team cholecalciferol (Vitamin D3 1000 intl units (25 mcg) oral capsule) 1 cap by mouth once daily . Do not take morning of procedure hydroCHLOROthiazide-triamterene (hydroCHLOROthiazide-triamterene 25 mg-37.5 mg oral capsule) 1 cap by mouth once daily . Do not take morning of procedure latanoprost ophthalmic (latanoprost 0.005% ophthalmic solution) 1 drop in both eyes every evening . Take night before procedure as usual levothyroxine (levothyroxine 112 mcg (0.112 mg) oral tablet) 1 tab by mouth once daily .ON AN EMPTY STOMACH BEFORE BREAKFAST Take the morning of procedure. multivitamin (Multiple Vitamins oral capsule) 1 cap by mouth once daily . Stop 7 days prior to procedure. omeprazole 20 mg by mouth once daily .every other day Take the morning of procedure. rosuvastatin (rosuvastatin 5 mg oral tablet) 1 tab by mouth once daily .M-W-F Take the morning of procedure. . Does patient use aspirin?: Yes. Does patient use beta blockers?: No. Does patient use RITU- I/ARB drugs?: No. Does patient use narcotic analgesics for chronic pain? (>1 month AND >30mg morphine or equivalent daily): No. Anesthesiologist Assessment and Plan Problems: No previous anesthetic complications, No a/w concerns. Cardiac risk factors: High risk surgery, CAD, CHF. Risk of major adverse cardiac event (Revised Cardiac Risk Index): 3 or more = 11%. Cardiovascular risk associated with the procedure: Elevated (>=1%). ASA Classification: Class III. Anesthetic Plan: Anesthetic technique discussed: General anesthesia, Regional anesthesia. Induction discussed: Intravenously. Airway plan discussed: Oral endotracheal tube. Special monitoring discussed: Arterial line, Central venous catheter, Transesophageal Echocardiography. Risks discussed: Nausea-vomiting, Headache, Sore throat, Dental injury, Eye injury, Allergic reaction, Serious complications, Nerve damage. Special techniques and precautions discussed: Nausea-vomiting, Transfusion of blood or blood products, Postoperative ICU, Mechanical ventilation. Review / Management Ordered Today: Per surgeon. EK04/04/23 86 bpm. NSR. LBBB 03/12/23 Normal sinus rhythm Left bundle branch block. Diagnostics: 02/13/23 Cardiac Cath , 02/13/23 Echo , 03/12/23 CT IMPRESSION: 1. Procedural measurements for TAVR as described above. 2. 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 Please correlate with prior arterialintervention and/or cross- sectional imaging.. Orders placed for day of surgery: None. Pending issues: patient has appointment with surgical team following [facility] appt today. Patient Education Patient Education: A. [facility] ([facility]). Electronic Signature on File Electronically Reviewed/Signed by: SOFÍA Fuentes Author Signature Dt/Tm:04/04/2023 09:35 AM Department of Anesthesia Electronically Reviewed/Signed by: Piyush Heard MD Cosigner Signature Dt/Tm: 04/05/2023 06:06 PM Department of Anesthesia Electronically Reviewed/Signed by: Kiera Shaver MD Resident Department of Anesthesia ALYSSA Patient Care team information Care Team Personnel Name: MD Chahal Paul Position: Referring DIRECT Member Role: Primary Care Provider Address: Address: [address] Name: Omari Betancourt Position: HIS Supervisor_P Member Role: HIS Lifetime Care Team Related Persons Name: SAHIL VINES
--- OUTSIDE RECORDS SUMMARY | 2023-05-08 21:06 | External Medical Summary | Continuity of Care Document ---
Author Name Unknown Organization [facility] [address] [place] [address] [place] [id number] Care Team Providers Care Groundskeeper Supervisor Name Role Phone Ilia Chahal Primary Care Physician [phone] [id number] 04/05/23 - 04/05/23 [facility] JANE 600 [facility] Heart and Vascular [place] - [address], [address], [address] [place] [address] [phone] Discharge Disposition: Home or Self Care Attending Physician: SAGAR London, Bushra Harding Referring Physician: MD Ashleigh, Julio Allergies, Adverse Reactions, Alerts No Known Allergies [...] 04/04/23 9:04:00 EDT, 1 tab, PO, Daily, Start Date: 04/04/23 Status: Ordered Vitamin D3 1000 intl units (25 mcg) oral capsule Start: 04/04/23 9:04:00 EDT, 1 cap, PO, Daily Start Date: 04/04/23 Status: Ordered Problem List Condition Confirmation Course Effective Dates Status H ealth Status Informant Multiple nevi Confirmed Active Coronary artery disease involving [place] heart Confirmed Active Mixed dyslipidemia Confirmed Active Epidermoid cyst Confirmed Active Epidermal cyst Confirmed Active Hypertension with heart disease Confirmed Active History of Hodgkin's lymphoma Confirmed Active Mitral valve stenosis and regurgitation Confirmed Active Severe calcific aortic valve stenosis Confirmed Active Skin tag Confirmed Active Procedures Procedure Date Related Diagnosis Body Site Status Excision of cyst central upper back 03/24/21 Completed partial left hyroidectomy 1985 Completed splenectomy 1985 Completed Colonoscopy Completed Social History Social History Type Response Smoking Status Never smoked cigaret lisa Sex Male Patient Care team information Care Team Personnel Name: MD Chahal Paul Position: Referring DIRECT Member Role: Primary Care Provider Address: Address: [address], [address] Name: Omari Betancourt Position: HIS Supervisor_P Member Role: HIS Lifetime Care Team Related Persons Name: SAHIL VINES
--- OUTSIDE RECORDS SUMMARY | 2023-05-08 21:06 | External Medical Summary | Continuity of Care Document ---
Author Name Unknown Organization [facility] JANE [address] [place] [address] [place] [phone] Care Team Providers Care Cast Shell Grinder Name Role Phone Ilia Chahal Primary Care Physician [phone] Encounter [facility] [id number] Date(s): 03/12/23 - 03/12/23 [facility] JANE 600 [facility] Heart and Vascular [place] [address], [address], [address] [place] [address] [phone] Encounter Diagnosis Body mass index [BMI] 24.0-24.9, adult(Discharge Diagnosis) - 03/12/23 Aortic stenosis(Discharge Diagnosis) - 03/12/23 Mitral regurgitation(Discharge Diagnosis) - 03/12/23 Mitral stenosis(Discharge Diagnosis) - 03/12/23 CAD (coronary artery disease)(Discharge Diagnosis) - 03/12/23 Discharge Disposition: Home or Self Care Attending Physician: MD Ashleigh [facility] Allergies, Adverse Reactions, Alerts No Known Allergies [...] BEFORE BREAKFAST Start Date: 10/28/18 Status: Ordered Mental Status 03/12/23 Barriers to Learning one year Vision imp airment Mandatory Health Literacy Documentation Yes Health Literacy Communication Barriers N ever Primary Language Kittitian Problem List Condition Confirmation Course Effective Dates Status Health St atus Informant Multiple nevi Confirmed Active Epidermoid cyst Confirmed Active Epidermal cyst Confirmed Active Skin tag Confirmed Active Diagnosis Diagnosis Type Effective Dates Health Status Clinical Service Informant Body mass index [BMI] 24.0-24.9, adult Discharge Diagnosis 03/12/23 Non-Specified Aortic stenosis Discharge Diagnosis 03/12/23 Mitral regurgitation Discharge Diagnosis 03/12/23 Mitral stenosis Discharge Diagnosis 03/12/23 CAD (coronary artery disease) Discharge Diagnosis 03/12/23 Procedures Procedure Date Related Diagnosis Body Site Status Excision 03/24/21 Completed Vital Signs Most recent to oldest [Reference Range]: 1 Height 187 cm (03/12/23 2:32 PM) Patient Weight 86.3 kg (03/12/23 2:32 PM) Body Mass Index 24.68 kg/m2 (03/12/23 2:32 PM) Temperature [36.5-37.9 DegC] 36.9 DegC (03/12/23 2:32 PM) Heart Rate 90 bpm (03/12/23 2:32 PM) Respiratory Rate 16 br/min (03/12/23 2:32 PM) Blood Pressure 138/78mmHg (03/12/23 2:32 PM) Cuff Pulse Pressure 60 mmHg (03/12/23 2:32 PM) BP Location # 1 Left Arm (03/12/23 2:32 PM) Social History Social History Type Response Smoking Status Never smoked cigaret lisa Sex Male Patient Care team information Care Team Personnel Name: MD Chahal Paul Position: Referring DIRECT Member Role: Primary Care Provider Address: Address: [address] Name: Omari Betancourt Position: HIS Supervisor_P Member Role: HIS Lifetime Care Team Related Persons Name: SAHIL VINES
--- OUTSIDE RECORDS SUMMARY | 2023-05-08 21:06 | External Medical Summary | Continuity of Care Document ---
Author Name Unknown Organization [facility] [address] [place] [id number] Care Team Providers Care Video Arcade Manager Name Role Phone Ilia Chahal Primary Care Physician [phone] Encounter [facility] [id number] Date(s): 04/04/23 - 04/04/23 [facility] 600 [facility] Heart and Vascular [place] - [address] [place] [address], [address], [address] [place] [address] [phone] Encounter Diagnosis Severe calcific aortic valve stenosis(Discharge Diagnosis) - 03/30/23 Mitral valve stenosis and regurgitation(Discharge Diagnosis) - 03/30/23 Coronary artery disease involving [place] heart(Discharge Diagnosis) - 03/30/23 Hypertension with heart disease(Discharge Diagnosis) - 03/30/23 History of Hodgkin's lymphoma(Discharge Diagnosis) - 03/30/23 Mixed dyslipidemia(Discharge Diagnosis) - 03/30/23 Body mass index [BMI] 24.0-24.9, adult(Discharge Diagnosis) - 04/04/23 Discharge Disposition: Home or [...] Literacy Communication Barriers N ever Primary Language Belarusian Problem List Condition Confirmation Course Effective Dates Status H ealth Status Informant Multiple nevi Confirmed Active Coronary artery disease involving [place] heart Confirmed Active Mixed dyslipidemia Confirmed Active Epidermoid cyst Confirmed Active Epidermal cyst Confirmed Active Hypertension with heart disease Confirmed Active History of Hodgkin's lymphoma Confirmed Active Mitral valve stenosis and regurgitation Confirmed Active Severe calcific aortic valve stenosis Confirmed Active Skin tag Confirmed Active Diagnosis Diagnosis Type Effective Dates Health Status Clinical Service Informant Severe calcific aortic valve stenosis Discharge Diagnosis 03/30/23 Mitral valve stenosis and regurgitation Discharge Diagnosis 03/30/23 Coronary artery disease involving [place] heart Discharge Diagnosis 03/30/23 Hypertension with heart disease Discharge Diagnosis 03/30/23 History of Hodgkin's lymphoma Discharge Diagnosis 03/30/23 Mixed dyslipidemia Discharge Diagnosis 03/30/23 Body mass index [BMI] 24.0-24.9, adult Discharge Diagnosis 04/04/23 Non-Specified Procedures Procedure Date Related Diagnosis Body Site Status Excision of cyst central upper back 03/24/21 Completed partial left hyroidectomy 1985 Completed splenectomy 1985 Completed Colonoscopy Completed Results Orders for Microbiology Reports Name Date Nasal Culture (THROAT/NASAL CULTURE) 05/17 Microbiology Reports TEST:Thr/Nasal.Cx STATUS:Auth (Verified) BODY SITE: SOURCE:Nasal COLLECTED DATE/TIME:04/04/23 11:09 AM Status FINAL 04/06/2023 Vital Signs Most recent to oldest [Reference Range]: 1 Height 188 cm (04/04/23 10:30 AM) Patient Weight 85.6 kg 1 (04/04/23 10:30 AM) Body Mass Index 24.22 kg/m2 (04/04/23 10:30 AM) Temperature [36.5-37.9 DegC] 36.6 DegC (04/04/23 10:30 AM) Heart Rate 84 bpm (04/04/23 10:30 AM) Respiratory Rate 16 br/min (04/04/23 10:30 AM) Blood Pressure 128/70mmHg (04/04/23 10:30 AM) Cuff Pulse Pressure 58 mmHg (04/04/23 10:30 AM) BP Location # 1 Left Arm (04/04/23 10:30 AM) 1Result Comment: with shoes Social History Social History Type Response Smoking Status Never smoked cigaret lisa Sex Male Pre-OP H & P * MD Ashleigh, [facility]: PERFORM Event Display: Pre-OP H & P Authored Date: [id number] PRE-OPERATIVE HISTORY AND PHYSICAL Name: ENMA VINES Jr. Patient Number: [id number] : 1960 Date of Service: 04/04/2023 PRE-OP Diagnosis: _AS, MS, MR, CAD Planned Procedure: _tissue AVR/MVR, CABG, LAAO Chief Complaint: _exertional dyspnea History of Present Illness (including history relevant to procedure): _Mr. Vines is a very [id number] gentleman with history of severe aortic stenosis, mild mitral stenosis and moderate mitral regurgitation, coronary artery disease, history of Hodgkin's lymphoma with radiation therapy, hypertension, hyperlipidemia, pulmonary hypertension, hypothyroidism, history of hyponatremia, pulmonary nodule, s/p splenectomy, who is under evaluation for a potential intervention for his cardiac condition. He has known severe aortic stenosis and other conditions mentioned above followed by Dr. Carney at [facility]. He had been doing well and walking on a treadmill most days eachweek. He then started to notice exertional dyspnea and declining exercise tolerance over the last 6months or so. His recent TTE on 01/18/2023 showed severe aortic stenosis with AV area of 0.6 sq cm with preserved LV systolic function with LVEF 55-60%. A [place] was obtained on 02/13/2023 and his mitral valve showed moderate regurgitation and lxoy-ho-ixwsbhtz stenosis with leaflet and annular calcificat ion, likely related to his radiation history for Hodgkin's lymphoma. His coronary angiogram on 02/13/2023 showed 50% mid-LAD, 60-70% ostial OM1, 100% ostial RCA lesions. Review Of Systems: _negative other than mentioned in HPI above. Past Medical History: Problems: Mixed dyslipidemia History of Hodgkin's lymphoma Hypertension with heart disease Coronary artery disease involving [place] heart Mitral valve stenosis and regurgitation Severe calcific aortic valve stenosis Epidermal cyst Skin tag Epidermoid cyst Multiple nevi Procedure History Procedure Procedure Date Comments Colonoscopy Excision of cyst central upper back 03/24/2021 partial left hyroidectomy 1985 splenectomy 1985 Allergies and Sensitivities: NKA Current Home Meds: (Last Updated 04/04 10:29) amLODIPine (amLODIPine 5 mg oral tablet) 5 mg PO Daily + Amlodipine 2.5mg for total of 7.5mg daily aspirin (aspirin 81 mg oral delayed release tablet) 81 mg PO Daily cholecalciferol (Vitamin D3 1000 intl units (25 mcg) oral capsule) 25 mcg PO Daily hydroCHLOROthiazide-triamterene (hydroCHLOROthiazide-triamterene 25 mg-37.5 mg oral capsule) 1 cap PO Daily latanoprost ophthalmic (latanoprost 0.005% ophthalmic solution) 1 drop both eyes qPM Store intact bottles under refrigeration. Once opened, the container may be stored at room temperature for 6 weeks. Ermias Billings 04/04 09:05 levothyroxine (levothyroxine 112 mcg (0.112 mg) oral tablet) 112 mcg PO Daily ON AN EMPTY STOMACH BEFORE BREAKFAST multivitamin (Multiple Vitamins oral capsule) 1 cap PO Daily omeprazole 20 mg PO Daily every other day rosuvastatin (rosuvastatin 5 mg oral tablet) 5 mg PO Daily M-W-F Vitals: Last Updated 04/04/23 10:30 Weights: Last Updated 04/04/23 10:30 Date Temp Pulse BP RR SpO2 FIO2 Date Wt(kg) Wt(lb) 04/04 10:30 36.6 84 128/70 16 98 04/04 10:30 85.6 188 04/04 10:30 85.6 188 24 Hr Tmax: 36.6 at 04/04 10:30 Initial Wt: 04/04 85.6 kg 188 lb Physical Exam: (relevant to the procedure, including heart and lung evaluation) His blood pressure was 128/70 mmHg, heart rate was 84/min and regular heart rhythm. His SpO2 was 98% on room air. He had no JVD. His breath sounds were clear to auscultate bilaterally. He had 3/6 systolic murmur at the left sternal border. There were not rubs or gallops. His abdomen was soft and benign. His extremities were warm without edema or cyanosis. Studies of Lab Results (relevant to the procedure): _ ASSESSMENT: _I agree that Mr. Vines has severe , moderate MR/MS and coronary artery disease with progressing exertional symptoms. A TAVR protocol CTA was obtained today and showed focal calcifications in the ascending aorta but I believed the aorta is clampable with only mildly increased risk of aortic or embolic complication. Since there is no proven catheter-based option to manage his calcified mitral lesion, I personally thought a surgical AVR/MVR/CABG is reasonable option to treat his valvular and coronary artery disease to improve his quality of life and life longevity. I discussed with Mr. Vines in length, regarding treatment options, surgical procedure of AVR/MVR/CABG, transcatheter treatment options, risks, benefits and limitations from these procedures, expected postoperative course, etc. He expressed understanding and agreed to proceed with above procedure on 04/25. Questionswere answered. Electronic Signature on File Electronically Reviewed/Signed by: Julio Sotelo MD Author Signature Dt/Tm:04/04/2023 10:58 AM Division of Cardiothoracic Surgery [place] * MD Sotelo Kentaro: PERFORM Event Display: Pre-OP H & P Authored Date: [id number] He decided and agreed to use tissue prosthesis for valve replacement. Electronic Signature on File Electronically Reviewed/Signed by: Julio Sotelo MD Author Signature Dt/Tm:04/04/2023 11:03 AM Division of Cardiothoracic Surgery [place] Patient Care team information Care Team Personnel Name: MD Chahal Paul Position: Referring DIRECT Member Role: Primary Care Provider Address: Address: [address] [facility] [address] [place] [address] [place] Name: Omari Betancourt Position: HIS Supervisor_P Member Role: HIS Lifetime Care Team Related Persons Name: SAHIL VINES
--- OUTSIDE RECORDS SUMMARY | 2023-05-08 21:06 | External Medical Summary | Continuity of Care Document ---
Author Name Unknown Organization [facility] 520 Address [address] [place] [phone] Care Team Providers Care Mechanical Shovel Operator Name Role Phone Ilia Chahal Primary Care Physician [phone] [id number] Date(s): 04/04/23 - 04/04/23 [facility] [address] [place] [id number] Discharge Disposition: Home or Self Care Attending [...] nevi Confirmed Active Coronary artery disease involving [place] heart Confirmed Active Mixed dyslipidemia Confirmed Active [...] Completed splenectomy 1985 Completed Colonoscopy Completed Results Laboratory List Name Date Complete Blood Count w Differential (CBC ,DIFFH) 04/04/23 Electrolyte Levels (ELECTROLYTES) Hemoglobin A1C (HEMOGLOBIN, A1C) 3 Partial Thromboplastin Time (PTT) Prothrombin Time w/ INR (PROTIME WITH IN R) 04/04/23 Renal Profile (RENAL PROFILE) 04/04/23 Urine Analysis w/ Reflexed Microscopic. (URINE W/REFLEX MICR) 04/04/23 Most recent to oldest [Reference Range]: 1 eGFR CKD-EPI [>60 mL/min/1.73 m2] 90 mL/ min/1.73 m2 (04/04/23 11:22 AM) Estimated Average Glucose 105 mg/dL (04/04/23: AM) Estimated CrCl 95.18 mL/min (04/04/23 12:28 PM) MPV [9.0-12.2 fL] 10.6 fL (04/04/23: AM) Immature Gran% 0.3 % (04/04/23: AM) Neut% 59.7 % (04/04/23: AM) Lymph% 25.3 % (04/04/23 AM) [place]% 12.0 % (04/04/23: AM) Baso% 2.4 % (04/04/23 AM) Eos% 0.3 % (04/04/23 AM) Immat Gran, Abs [0-0.4 K/uL] 0.02 K/uL (04/04/23 AM) Neut, Abs [2.0-7.7 K/uL] 4.05 K/uL (04/04/23 AM) Lymph, Abs [1.0-3.4 K/uL] 1.71 K/uL (04/04/23 AM) [place], Abs [0-1.0 K/uL] 0.81 K/uL (04/04/23 AM) Baso, Abs [0-0.1 K/uL] 0.16 K/uL *HI* (04/04/23) Eos, Abs [0-0.5 K/uL] 0.02 K/uL (04/04/23 AM) Type of Diff: AUTO *Unknown* (04/04/23) RDW [11.5-14.2 %] 14.4 % *HI* (04/04/23) Squamous Epithelial Cells (u) NONE *Unknown* (04/04/23) Anion Gap [5-14 mmol/L] 11 mmol/L (04/04/23) Bact (u) [NONE-NONE] NONE *Unknown* (04/04/23) Bili (u) [NEG] NEGATIVE *Unknown* (04/04/23) BUN [6-23 mg/dL] 14 mg/dL (04/04/23) Cl- [98-107 mmol/L] 100 mmol/L (04/04/23) HCO3 [22-29 mmol/L] 28 mmol/L (04/04/23 AM) Cret [0.70-1.30 mg/dL] 0.96 mg/dL (04/04/23 AM) HbA1c [<5.7 %] 5.3 % 1 (04/04/23 AM) Hct [39-48 %] 43.9 % (04/04/23) Hgb [13.0-17.0 g/dL] 14.9 g/dL (04/04/23) INR [0.9-1.1] 0.9 2 (04/04/23) K [3.5-5.1 mmol/L] 3.8 mmol/L (04/04/23) Ketones [NEG mg/dL] NEGATIVE mg/dL (04/04/23) Leuk Est [NEG] NEGATIVE *Unknown* (04/04/23) MCH [28-33 pg] 31.8 pg (04/04/23) MCHC [32-36 g/dL] 33.9 g/dL (04/04/23) MCV [81-96 fL] 93.8 fL (04/04/23) Na [136-145 mmol/L] 139 mmol/L (04/04/23) Nitrite (u) [NEG] NEGATIVE *Unknown* (04/04/23) Plts [150-350 K/uL] 400 K/uL *HI* (04/04/23) PT [12.0-14.2 seconds] 12.3 seconds (04/04/23) PTT [23-35 seconds] 31 seconds (04/04/23) RBC [4.40-5.60 M/uL] 4.68 M/uL (04/04/23) Appear (u) CLEAR *Unknown* (04/04/23) Color (u) STRAW *Unknown* (04/04/23) Glu (u) [NEG mg/dL] NEGATIVE mg/dL (04/04/23) Hgb (u) [NEG] SMALL *Abnormal* (04/04/23) pH (u) [5.0-8.0 unit] 7.0 unit (04/04/23) Prot (u) [NEG mg/dL] NEGATIVE mg/dL (04/04/23) RBC (u) [0-4 /HPF] 0-4 /HPF (10/11/23 11:21 AM) Urobili [0.1-1.0 EU/dL] 0.1-1.0 EU/dL (04/04/23 11:21 AM) SG [1.005-1.030] 1.008 (04/04/23 11:21 AM) WBC (u) [0-4 /HPF] 0-4 /HPF (04/04/23 11:21 AM) WBC [4.0-10.4 K/uL] 6.77 K/uL (04/04/23 11:22 AM) 1Result Comment: ADA Recommended [place] Reference Range: Normal: <5.7% Prediabetes: 5.7-6.4% Diabetes: >6.4% 2Result Comment: Suggested therapeutic range for low-intensity Coumadin therapy for venous thromboembolism is INR 2.0-3.0 (ex: atrial fibrillation, history of TIA/stroke). For high risk patients, the suggested therapeutic range is INR 2.5-3.5 (ex: mechanical prosthetic valves). Social History Social History Type Response Smoking Status Never smoked cigaret lisa Sex Male Patient Care team information Care Team Personnel Name: MD Chahal Paul Position: Referring DIRECT Member Role: Primary Care Provider Address: Address: [address] Name: Omari Betancourt Position: HIS Supervisor_P Member Role: HIS Lifetime Care Team Related Persons Name: SAHIL VINES
--- OUTSIDE RECORDS SUMMARY | 2023-05-08 21:06 | External Medical Summary | Continuity of Care Document ---
Author Name Unknown Organization [facility] JANE 600 Address [address] [place] [id number] Care Team Providers Care Health Information Clerk Name Role Phone Ilia Chahal Primary Care Physician [phone] Encounter [facility] [id number] Date(s): 03/12/23 - 03/12/23 [facility] JANE 600 [facility] Heart and Vascular [place] [address], [address], [address] [place] [address] [phone] Encounter Diagnosis Severe aortic stenosis(Discharge Diagnosis) - 03/12/23 CAD (coronary artery disease)(Discharge Diagnosis) - 03/12/23 Body mass index [BMI] 24.0-24.9, adult(Discharge Diagnosis) - 03/12/23 Discharge Disposition: Home or Self Care Attending Physician: SOFÍA Heaton Denise A Referring Physician: MD Rommel, Joel Croft Allergies, Adverse Reactions, Alerts No Known Allergies [...] Literacy Communication Barriers N ever Primary Language Mohawk Problem List Condition Confirmation Course Effective Dates Status Health St atus Informant Multiple nevi Confirmed Active Epidermoid cyst Confirmed Active Epidermal cyst Confirmed Active Skin tag Confirmed Active Diagnosis Diagnosis Type Effective Dates Health Status Cl inical Service Informant CAD (coronary artery disease) Discharge Diagnosis 03/12/23 Non-Specified Severe aortic stenosis Discharge Diagnosis 03/12/23 Non-Specified Body mass index [BMI] 24.0-24.9, adult Discharge Diagnosis 03/12/23 Non-Specified Procedures Procedure Date Related Diagnosis Body Site Status Excision 03/24/21 Completed Vital Signs Most recent to oldest [Reference Range]: 1 Height 187 cm (03/12/23 11:53 AM) Patient Weight 86.3 kg 1 (03/12/23 11:53 AM) Body Mass Index 24.68 kg/m2 (03/12/23 11:53 AM) Temperature [36.5-37.9 DegC] 36.9 DegC (03/12/23 11:53 AM) Heart Rate 90 bpm (03/12/23 11:53 AM) Respiratory Rate 16 br/min (03/12/23 11:53 AM) Blood Pressure 138/78mmHg (03/12/23 11:53 AM) Cuff Pulse Pressure 60 mmHg (03/12/23 11:53 AM) BP Location # 1 Left Arm (03/12/23 11:53 AM) 1Result Comment: with shoes Social History Social History Type Response Smoking Status Never smoked cigaret lisa Sex Male Radiology * Contributor_system, [id number]: VERIFY, PERFORM Event Display: EKG Authored Date: Please click on link to see image. Patient Care team information Care Team Personnel Name: MD Chahal Paul Position: Referring DIRECT Member Role: Primary Care Provider Address: Address: [address] [address] [place] Name: Omari Betancourt Position: HIS Supervisor_P Member Role: HIS Lifetime Care Team Related Persons Name: SAHIL VINES
--- OUTSIDE RECORDS SUMMARY | 2023-05-08 21:07 | External Medical Summary | Continuity of Care Document ---
Author Name Unknown Organization [facility] JANE [address] [place] [id number] Care Team Providers Care Family Resource Specialist Name Role Phone Ilia Chahal Primary Care Physician [phone] Encounter [facility] [id number] Date(s): 02/20/23 - 02/20/23 [facility] JANE 600 [facility] Heart and Vascular [place] - [address], [address], [address] [place] [address] [phone] Discharge Disposition: Home or Self Care Attending Physician: MD Soliman Behzad Referring Physician: MD Carney Anthony F Allergies, Adverse Reactions, Alerts No Known Allergies [...] Role: Primary Care Provider Address: Address: [address] [facility] [address] [place] [address] Name: Omari Betancourt Position: HIS Supervisor_P Member Role: HIS Lifetime
== END 2023-05-07 14:30 | disposition home or self-care (01) | DRG 310 ==
LOC: ED 14:28 → SUATTDRO 17:53 → EDINP 17:53 → 2S 20:13
DX: I10 Essential (primary) hypertension; E03.9 Hypothyroidism, unspecified; Z85.71 Personal history of Hodgkin lymphoma; Z79.82 Long term (current) use of aspirin; Z79.899 Other long term (current) drug therapy; I25.10 Atherosclerotic heart disease of native coronary artery without angina pectoris; Z79.01 Long term (current) use of anticoagulants; Z95.0 Presence of cardiac pacemaker; K21.9 Gastro-esophageal reflux disease without esophagitis; Z95.1 Presence of aortocoronary bypass graft; I44.1 Atrioventricular block, second degree; Z98.890 Other specified postprocedural states; E78.5 Hyperlipidemia, unspecified; Z95.2 Presence of prosthetic heart valve; I48.92 Unspecified atrial flutter; Z79.890 Hormone replacement therapy